=== PATIENT | male | born 1955 | race Caucasian/White ===

== ENCOUNTER → 2016-07-30 | Outpatient (CLI) | payer OTHER ==
[2016-07-30 13:46] LABS: ABSOLUTE BASOPHILS # (AUTO) 0.1 10^3/uL (0.0-0.2); ABSOLUTE EOSINOPHILS # (AUTO) 0.1 10^3/uL (0.0-0.6); ABSOLUTE LYMPHOCYTES (AUTO) 1.6 10^3/uL (0.5-4.7); ABSOLUTE MONOCYTES (AUTO) 0.8 10^3/uL (0.1-1.4); ABSOLUTE NEUT (AUTO) 4.4 10^3/uL (1.7-8.2); BASOPHILS % (AUTO) 0.8 % (0-2); EOSINOPHILS % (AUTO) 1.7 % (0-6); HEMOGLOBIN 15.7 g/dL (13.5-17.0); HGB HCT DIFFERENCE -1.9; LYMPHOCYTES % (AUTO) 22.9 % (13-45); MEAN CORPUSCULAR HEMOGLOBIN 29.8 pg (27.0-33.4); MEAN CORPUSCULAR VOLUME 93 fl (80-97); MONOCYTES % (AUTO) 11.8 % (3-13); RED BLOOD COUNT 5.28 10^6/uL (4.35-5.55); RED CELL DISTRIBUTION WIDTH 13.7 % (11.5-14.0); SEGMENTED NEUTROPHILS % (AUTO) 62.8 % (42-78)
[2016-07-30 14:12] LABS: ANION GAP 8 (5-19); BLOOD UREA NITROGEN 22 mg/dL (7-20); CARBON DIOXIDE 30 mmol/L (22-30); CHLORIDE 102 mmol/L (98-107); CREATININE RESULT 1.09 mg/dL (0.52-1.25); GLUCOSE 112 mg/dL (75-110); POTASSIUM 4.8 mmol/L (3.6-5.0); SODIUM 140.3 mmol/L (137-145)
[2016-07-30 14:22] LABS: APPEARANCE,URINE CLEAR; BILIRUBIN,URINE NEGATIVE (NEGATIVE); GLUCOSE, URINE NEGATIVE (NEGATIVE); KETONES,URINE NEGATIVE (NEGATIVE); LEUKOCYTE ESTERASE,URINE NEGATIVE (NEGATIVE); NITRITE,URINE NEGATIVE (NEGATIVE); PROTEIN,URINE NEGATIVE (NEGATIVE); URINE SPECIFIC GRAVITY 1.019; UROBILINOGEN,URINE NEGATIVE mg/dL (<2.0)
--- NOTE | 2016-07-30 18:38 | EKG REPORT ---
SEVERITY:- ABNORMAL ECG - SINUS RHYTHM BORDERLINE IVCD WITH LAD INFERIOR INFARCT, AGE INDETERMINATE : Confirmed by: Emory Nolasco MD 30-Jul-2016 18:37:49
== END ==
LOC: OD 12:54
PROVIDERS: ATTEND Orthopaedic Surgery
DX: Z01.810 Encounter for preprocedural cardiovascular examination (principal); Z01.811 Encounter for preprocedural respiratory examination; Z01.818 Encounter for other preprocedural examination; Z79.899 Other long term (current) drug therapy; M16.11 Unilateral primary osteoarthritis, right hip; E11.9 Type 2 diabetes mellitus without complications
CPT/HCPCS: 36415; 71020; 80048; 81001; 83036; 85025; 93005; 93010

== ENCOUNTER → 2016-11-26 | Outpatient (CLI) | payer OTHER ==
[2016-11-27 15:38] LABS: APPEARANCE,URINE CLEAR; BILIRUBIN,URINE NEGATIVE (NEGATIVE); GLUCOSE, URINE NEGATIVE (NEGATIVE); KETONES,URINE NEGATIVE (NEGATIVE); LEUKOCYTE ESTERASE,URINE NEGATIVE (NEGATIVE); NITRITE,URINE NEGATIVE (NEGATIVE); PROTEIN,URINE NEGATIVE (NEGATIVE); URINE SPECIFIC GRAVITY 1.008; UROBILINOGEN,URINE NEGATIVE mg/dL (<2.0)
[2016-11-27 16:01] LABS: ABSOLUTE EOSINOPHILS # (AUTO) 0.2 10^3/uL (0.0-0.6); ABSOLUTE LYMPHOCYTES (AUTO) 2.1 10^3/uL (0.5-4.7); ABSOLUTE NEUT (AUTO) 4.5 10^3/uL (1.7-8.2); BASOPHILS % (AUTO) 0.6 % (0-2); EOSINOPHILS % (AUTO) 2.8 % (0-6); HEMATOCRIT 48.2 % (37.9-51.0); HEMOGLOBIN 15.7 g/dL (13.5-17.0); HGB HCT DIFFERENCE -1.1; LYMPHOCYTES % (AUTO) 26.4 % (13-45); MEAN CORPUSCULAR HEMOGLOBIN 29.8 pg (27.0-33.4); MEAN CORPUSCULAR HGB CONC 32.5 g/dL (32.0-36.0); MEAN CORPUSCULAR VOLUME 92 fl (80-97); MONOCYTES % (AUTO) 12.4 % (3-13); RED BLOOD COUNT 5.25 10^6/uL (4.35-5.55); RED CELL DISTRIBUTION WIDTH 13.8 % (11.5-14.0); SEGMENTED NEUTROPHILS % (AUTO) 57.8 % (42-78); WHITE BLOOD COUNT 7.8 10^3/uL (4.0-10.5)
--- NOTE | 2016-11-29 17:51 | EKG REPORT ---
SEVERITY:- ABNORMAL ECG - SINUS RHYTHM NONSPECIFIC IVCD WITH LAD BORDERLINE R WAVE PROGRESSION, ANTERIOR LEADS : Confirmed by: Luz Marina Saavedra MD 29-Nov-2016 17:50:12
[2016-11-29 19:54] LABS: ANION GAP 12 (5-19); BLOOD UREA NITROGEN 26 mg/dL (7-20); CALCIUM 10.2 mg/dL (8.4-10.2); CARBON DIOXIDE 30 mmol/L (22-30); CHLORIDE 99 mmol/L (98-107); CREATININE RESULT 1.04 mg/dL (0.52-1.25); GLUCOSE 134 mg/dL (75-110); POTASSIUM 4.4 mmol/L (3.6-5.0); SODIUM 140.7 mmol/L (137-145)
== END ==
LOC: OD 21:16
PROVIDERS: ATTEND Orthopaedic Surgery
DX: Z01.818 Encounter for other preprocedural examination (principal)
CPT/HCPCS: 36415; 71020; 80048; 81001; 83036; 85025; 93005; 93010

== ENCOUNTER 2017-01-05 05:36 | Inpatient (IN) | payer OTHER ==
[2016-12-25 12:18] LABS: APPEARANCE,URINE CLEAR; BILIRUBIN,URINE NEGATIVE (NEGATIVE); GLUCOSE, URINE NEGATIVE (NEGATIVE); KETONES,URINE NEGATIVE (NEGATIVE); LEUKOCYTE ESTERASE,URINE NEGATIVE (NEGATIVE); NITRITE,URINE NEGATIVE (NEGATIVE); PROTEIN,URINE NEGATIVE (NEGATIVE); URINE SPECIFIC GRAVITY 1.006; UROBILINOGEN,URINE NEGATIVE mg/dL (<2.0)
[2016-12-25 12:23] LABS: HEMOGLOBIN 15.9 g/dL (13.5-17.0); HGB HCT DIFFERENCE 0.7; MEAN CORPUSCULAR HEMOGLOBIN 30.3 pg (27.0-33.4); MEAN CORPUSCULAR HGB CONC 33.7 g/dL (32.0-36.0); MEAN CORPUSCULAR VOLUME 90 fl (80-97); RED BLOOD COUNT 5.23 10^6/uL (4.35-5.55); RED CELL DISTRIBUTION WIDTH 13.8 % (11.5-14.0); WHITE BLOOD COUNT 7.5 10^3/uL (4.0-10.5)
[2016-12-25 12:51] LABS: ANION GAP 12 (5-19); BLOOD UREA NITROGEN 20 mg/dL (7-20); CALCIUM 10.5 mg/dL (8.4-10.2); CARBON DIOXIDE 24 mmol/L (22-30); CHLORIDE 103 mmol/L (98-107); CREATININE RESULT 0.99 mg/dL (0.52-1.25); GLUCOSE 156 mg/dL (75-110); POTASSIUM 4.2 mmol/L (3.6-5.0); SODIUM 139.4 mmol/L (137-145)
[~2017-01-05 05:36] MED LIST: BUPIVACAINE INJ/PF LIPOSOME/PF 266 MG/20 ML SDV IJ PRN; CEFAZOLIN INJ 1 GM VIAL IV PRN; IBUPROFEN 800 MG/NS 250 ML IV PRN; LACTATED RINGERS 1000 ML IV PRN; LANSOPRAZOLE 15 MG TAB.RAP.DR PO PRN; LIDOCAINE 0.5% INJ-PF (5 MG/ML) 50 ML SDV SUBCUT PRN; OXYCODONE HCL SR 10 MG TABLET PO PRN; SCOPOLAMINE HYDROBROMIDE 1.5 MG PATCH.TD72 TOP PRN; VANCOMYCIN HCL 1,000 MG in DEXTROSE 5%-WATER 250 ML IV PRN
[2017-01-05 06:30] LABS: PROTHROMBIN TIME 13.1 SEC (11.4-15.4)
[2017-01-05 06:32] LABS: PARTIAL THROMBOPLASTIN TIME 32.9 SEC (23.5-35.8)
[2017-01-05] MEDS ORDERED: THROMBIN (BOVINE) TOPICAL 20000 UNIT VIAL ONE (06:42)
[2017-01-05] MEDS ORDERED: BUPIVACAINE INJ/PF LIPOSOME/PF 266 MG/20 ML SDV ONE (06:42)
[2017-01-05] MEDS ORDERED: THROMBIN (BOVINE) 5000 UNIT EPITAXIS KIT ONE (06:42)
[2017-01-05] MEDS ORDERED: KETAMINE HCL INJ 500 MG/10 ML VIAL ONE (06:44)
[2017-01-05] MEDS ORDERED: MIDAZOLAM 2 MG/2 ML INJ ONE (06:44)
[2017-01-05] MEDS ORDERED: TRANEXAMIC ACID INJ/PF 1,000 MG/10 ML SDV IV ONE ×2 (06:45→10:00)
[2017-01-05] MEDS ORDERED: PROPOFOL INJ 200 MG/20 ML VIAL IV ONE (06:45)
[2017-01-05] MEDS ORDERED: CLINDAMYCIN 600 MG/D5W RTU 600 MG/50 ML RTUPB IV ONE (06:48)
[2017-01-05] MEDS ORDERED: MEPERIDINE HCL/PF INJ 25 MG/1 ML DISP.SYRIN IV PRN (08:12)
[2017-01-05] MEDS ORDERED: FENTANYL CITRATE INJ/PF 100 MCG/2 ML AMPUL IV PRN ×3 (08:12)
[2017-01-05] MEDS ORDERED: MORPHINE SULFATE 10 MG/ML INJ IV PRN ×3 (08:12→08:47)
[2017-01-05] MEDS ORDERED: DIPHENHYDRAMINE HCL 50 MG/ML VIAL IV PRN ×2 (08:12→08:47)
[2017-01-05] MEDS ORDERED: PROMETHAZINE HCL INJ 25 MG/1 ML VIAL IV PRN (08:12)
[2017-01-05] MEDS ORDERED: ONDANSETRON HCL INJ/PF 4 MG/2 ML SDV IV PRN ×2 (08:12→08:49)
[2017-01-05] MEDS ORDERED: EPHEDRINE SULFATE INJ 50 MG/1 ML AMPULE ONE (08:20)
[2017-01-05] MEDS ORDERED: NITROGLYCERIN 0.4 MG/TAB 25 TAB/BOTTLE SL PRN (08:46)
[2017-01-05] MEDS ORDERED: MORPHINE SULFATE 10 MG/ML INJ IM PRN (08:47)
[2017-01-05] MEDS ORDERED: ONDANSETRON 4 MG TAB.RAPDIS PO PRN (08:47)
[2017-01-05] MEDS ORDERED: RINGERS SOLUTION,LACTATED 1,000 ML IV PRN (08:47)
[2017-01-05] MEDS ORDERED: ZOLPIDEM TARTRATE 5 MG TABLET PO PRN (08:49)
[2017-01-05] MEDS ORDERED: ACETAMINOPHEN 325 MG TABLET PO PRN (08:49)
[2017-01-05] MEDS ORDERED: MAG HYDROX/AL HYDROX/SIMETH SUSP 30 ML UDCUP PO PRN (08:49)
--- NOTE | 2017-01-05 08:53 | Operative Report ---
Operative Report DATE OF SURGERY: 01/05/17 PREOPERATIVE DIAGNOSIS: Right hip arthritis OPERATION: Right hip arthroplasty SURGEON: ABRAM HERNANDEZ ANESTHESIA: Spinal TISSUE REMOVED OR ALTERED: Bone to pathology ESTIMATED BLOOD LOSS: 150 PROCEDURE: Implants used: Femur: Joel accolade 2 stem size 6 Acetabular shell: 58 mm acetabular shell Liner: 36 mm flat cross-linked polyethylene liner Head: 36 mm chrome cobalt head -5 neck The patient is placed in a left lateral decubitus position on the operating table. The right lower extremity and hindquarter is prepped and draped in a sterile fashion. A curvilinear incision was made over the greater trochanter a posterior approach the hip was taken. The femoral head is dislocated and the femoral neck transected using an oscillating saw. Attention was next turned to the acetabulum. Soft tissues cleared off the acetabulum using electrocautery. The acetabulum was then prepared using a series of hemispherical reamers until a 57 millimeters reamer is seated. Subsequently a 58 millimeters Joel titanium hemispherical shell is impacted into position and secured with one screw. A standard flat 36 millimeters cross- link liner is impacted into the shell. Attention was next turned to the femur. Access is gained to the femoral canal using a box osteotome to the piriformis fossa. The femur is then prepared using a series of broaches until a number 6 broach is seated. A trial reduction was now performed using a 36 millimeters head with -5 neck. Preoperative leg length was recreated and is excellent anterior posterior stability. A decision was made to proceed with the above construct. All trial implants were removed. The wound is irrigated with pulsed lavage. A number 6 stem is impacted into the femoral canal. A trial reduction was again performed with a 36 mm head and a -5 neck. Findings as previously. The hip was dislocated one last time and the final chrome-cobalt head is impacted onto the trunnion. The hip was reduced. Wound is copiously irrigated with pulsed lavage. Sent closed in layers using interrupted Vicryl followed by cheyenne. A sterile dressing is applied and the patient's returned to recovery room in satisfactory patient.
[2017-01-05] MEDS ORDERED: PROMETHAZINE HCL INJ 25 MG/1 ML VIAL ONE (09:17)
[2017-01-05] MEDS ORDERED: DEXTROSE 40% GEL 15 GM TUBE X 2 PO PRN (09:20)
[2017-01-05] MEDS ORDERED: DEXTROSE 50%-WATER SYRINGE 12.5 GM/25 ML DOSE IV PRN (09:20)
[2017-01-05] MEDS ORDERED: DEXTROSE 50%-WATER SYRINGE 25 GM/50 ML DOSE IV PRN (09:20)
[2017-01-05] MEDS ORDERED: DEXTROSE 40% GEL 15 GM TUBE PO PRN (09:20)
[2017-01-05] MEDS ORDERED: GLUCAGON,HUMAN RECOMB 1 MG INJ IM PRN (09:20)
[2017-01-05] MEDS ORDERED: INSULIN LISPRO 100 UNIT/ML 3 ML VIAL SUBCUT PRN (09:20)
--- NOTE | 2017-01-05 09:35 | RADIOLOGY REPORT (SQ) ---
EXAM DESCRIPTION: PELVIS AP COMPLETED DATE/TIME: 01/05/2017 9:26 am REASON FOR STUDY: Post Op Long Cassette in PACU M16.11 UNILATERAL PRIMARY OSTEOARTHRITIS, RIGHT HI P COMPARISON: None. NUMBER OF VIEWS: One view TECHNIQUE: Digital radiographic images of the pelvis post-procedure LIMITATIONS: None. FINDINGS: BONES: No worrisome or unexpected findings post-procedure. DEVICE: There is been a total right hip replacement. SOFT TISSUES: No worrisome findings. Expected postoperative soft tissue changes. IMPRESSION: Satisfactory postoperative right hip. TECHNICAL DOCUMENTATION: JOB ID: [id number] [facility]- All Rights Reserved
[2017-01-05] MEDS ORDERED: TRANEXAMIC ACID INJ/PF 1,000 MG/10 ML SDV IV PRN (10:00)
[2017-01-05] MEDS ORDERED: (PENDING PHARMACY ID) (Sitagliptin Phos/Metformin Hcl [Janumet 50-500 Mg Tablet] 1 EACH) PO SCH (10:00)
[2017-01-05] MEDS ORDERED: CEFAZOLIN 2 GM/D5W RTU 50 ML IV SCH (12:00)
[2017-01-05] MEDS: OXYCODONE HCL IR 5 MG TABLET PO PRN ×2 (13:12→21:22)
[2017-01-05] MEDS ORDERED: CEFAZOLIN 2 GM/D5W RTU 2 GM/50 ML RTUPB IV ONE (13:30)
[2017-01-05] MEDS: IBUPROFEN 800 MG in NORMAL SALINE 250 ML IV SCH ×2 (14:24→22:13)
[2017-01-05] MEDS: CEFAZOLIN 2 GM/D5W RTU 2 GM/50 ML RTUPB IV SCH ×2 (14:24→22:12)
[2017-01-05] MEDS: MORPHINE SULFATE 10 MG/ML INJ IV PRN ×2 (14:30→22:12)
[2017-01-05] MEDS: SITAGLIPTIN PHOSPHATE 50 MG TABLET PO SCH (17:23)
[2017-01-05] MEDS: OXYCODONE HCL SR 10 MG TABLET PO SCH (17:24)
[2017-01-05] MEDS: METFORMIN HCL 500 MG TABLET PO SCH (17:24)
[2017-01-05] MEDS: SENNOSIDES/DOCUSATE 8.6-50 MG 1 EACH TABLET PO SCH (17:25)
[2017-01-05] MEDS ORDERED: AMLODIPINE BESYLATE 2.5 MG TABLET PO SCH (18:00)
[2017-01-05] MEDS: METOPROLOL TARTRATE 25 MG TABLET PO SCH (21:22)
[2017-01-05] MEDS ORDERED: INSULIN GLARGINE,HUM.REC.ANLOG 300 UNIT/3 ML INSULN.PEN SUBCUT SCH (22:00)
[2017-01-05] MEDS ORDERED: RIVAROXABAN 10 MG TABLET PO SCH (22:00)
[2017-01-05] MEDS ORDERED: (PENDING PHARMACY ID) (Lisinopril [Zestril] 2.5 MG) PO SCH (22:00)
[2017-01-05] MEDS ORDERED: ATORVASTATIN CALCIUM 80 MG TABLET PO SCH (22:00)
[2017-01-06] MEDS: CEFAZOLIN 2 GM/D5W RTU 2 GM/50 ML RTUPB IV SCH ×2 (02:40→10:00)
[2017-01-06] MEDS: OXYCODONE HCL SR 10 MG TABLET PO SCH (05:11)
[2017-01-06] MEDS: IBUPROFEN 800 MG in NORMAL SALINE 250 ML IV SCH (05:12)
[2017-01-06] MEDS: MORPHINE SULFATE 10 MG/ML INJ IV PRN (05:12)
[2017-01-06] MEDS ORDERED: LANSOPRAZOLE 30 MG TAB.RAP.DR PO SCH (06:00)
[2017-01-06 07:19] LABS: HEMATOCRIT 38.6 % (37.9-51.0); HEMOGLOBIN 13.2 g/dL (13.5-17.0); MEAN CORPUSCULAR HGB CONC 34.2 g/dL (32.0-36.0); MEAN CORPUSCULAR VOLUME 91 fl (80-97); RED BLOOD COUNT 4.26 10^6/uL (4.35-5.55); RED CELL DISTRIBUTION WIDTH 13.6 % (11.5-14.0); WHITE BLOOD COUNT 7.8 10^3/uL (4.0-10.5)
[2017-01-06 07:38] LABS: ANION GAP 9 (5-19); BLOOD UREA NITROGEN 17 mg/dL (7-20); CALCIUM 9.4 mg/dL (8.4-10.2); CARBON DIOXIDE 25 mmol/L (22-30); CHLORIDE 102 mmol/L (98-107); CREATININE RESULT 1.08 mg/dL (0.52-1.25); GLUCOSE 190 mg/dL (75-110); POTASSIUM 4.3 mmol/L (3.6-5.0); SODIUM 135.5 mmol/L (137-145)
--- NOTE | 2017-01-06 07:43 | PDOC DISCHARGE SUMMARY ---
General - Admit/Disc Date/PCP Admission Date/Primary Care Provider: 01/05/17 08:47 DOROTHY CASANOVA MD Discharge Date: 01/06/17 - Discharge Diagnosis (1) Arthritis, hip Is this a current diagnosis for this admission?: YesSummary: The 61-year-old white male with progressive right hip pain and functional disability secondary osteoarthritis. Patient is admitted for right hip arthroplasty. - Additional Information Resuscitation Status: Full Code Discharge Diet: As Tolerated, Regular Discharge Activity: Activity As Tolerated, Balance Activity w/Rest, No Driving, No tub bath Home Medications: Atorvastatin Calcium [Lipitor 80 mg Tablet] 80 mg PO QHS 05/16/15 Docusate Sodium [Colace 100 mg Capsule] 50 - 100 mg PO BID 05/16/15 Insulin Glargine,Hum.rec.anlog [Lantus Solostar] 32 unit SQ QHS 05/16/15 Lisinopril [Zestril] 2.5 mg PO QHS 05/16/15 Metoprolol Tartrate 25 mg PO BID 05/16/15 Nitroglycerin [Nitrostat] 0.4 mg SL ASDIR PRN 05/16/15 Sitagliptin Phos/Metformin HCl [Janumet 50-500 mg Tablet] 1 each PO BID Clopidogrel Bisulfate [Plavix 75 mg Tablet] 75 mg PO QPM #0 05/30/15 Amlodipine Besylate 2.5 mg PO QPM 12/24/16 Aspirin [Aspirin EC] 81 mg PO DAILY 12/24/16 Furosemide [Lasix] 60 mg PO QAM 12/24/16 Hydrocodone/Acetaminophen [Vicodin Es 7.5-300 mg Tablet] 1 each PO BID PRN 12/24 Isosorbide Mononitrate [Isosorbide Mononitrate ER] 30 mg PO QAM 12/24/16 Meloxicam 7.5 mg PO BID 12/24/16 Oxycodone HCl [Oxy-Ir 5 mg Tablet] 5 mg PO Q6HP PRN #0 tablet 01/06/17 Rivaroxaban [Xarelto 10 mg Tablet] 10 mg PO QHS #0 tablet 01/06/17 History of Present Illness History of Present Illness: RAMON KIRBY SR is a 61 year old male Hospital Course Hospital Course: Admitted through the operating room where he undergoes an uncomplicated right hip arthroplasty. Is returned to the floor in satisfactory condition. Makes excellent progress with physical therapy and ambulates 400 feet on the first day. Patient denies any pain. Physical Exam Vital Signs: Temp Pulse Resp BP Pulse Ox 37.2 C 88 20 118/58 L 95 01/06/17 00:19 01/06/17 00:19 01/06/17 00:19 01/06/17 00:19 01/06/17 00:19 Intake & Output 01/05/17 01/06/17 01/07/17 06:59 06:59 06:59 Intake Total 0 7172 Output Total 4800 Balance 0 2372 General appearance: PRESENT: no acute distress Head exam: PRESENT: normocephalic Eye exam: PRESENT: EOMI Respiratory exam: PRESENT: unlabored Cardiovascular exam: PRESENT: RRR Pulses: PRESENT: +1 pedal pulses bilateral Vascular exam: PRESENT: normal capillary refill GI/Abdominal exam: PRESENT: soft Rectal exam: PRESENT: deferred Extremities exam: PRESENT: other - Right hip picot dressing is clean dry and intact. Leg lengths are equal. Distal neurovascular examination is intact. Neurological exam: PRESENT: alert, awake, oriented to person, oriented to place , oriented to time, oriented to situation. ABSENT: motor sensory deficit Psychiatric exam: PRESENT: appropriate affect, normal mood. ABSENT: homicidal ideation, suicidal ideation Skin exam: PRESENT: dry, intact, warm. ABSENT: cyanosis, rash Results Impressions: Pelvis X-Ray 01/05/17 08:48 IMPRESSION: Satisfactory postoperative right hip. Status: Imported from PACS Plan Discharge Plan: Patient to be discharged home with home health nursing, home health physical therapy, wheeled walker, extra-large bedside commode. Visiting nurse service can change the right hip picot dressing on postop day 7. Follow-up can be with Dr. Mcghee in the [facility] for surgery in approximately 2 weeks for staple removal. Time Spent: Less than 30 Minutes
[2017-01-06] MEDS ORDERED: FUROSEMIDE 40 MG TABLET PO SCH (08:00)
[2017-01-06] MEDS: METOPROLOL TARTRATE 25 MG TABLET PO SCH (09:30)
[2017-01-06] MEDS: OXYCODONE HCL IR 5 MG TABLET PO PRN (09:31)
[2017-01-06] MEDS: SITAGLIPTIN PHOSPHATE 50 MG TABLET PO SCH (09:31)
[2017-01-06] MEDS: METFORMIN HCL 500 MG TABLET PO SCH (09:32)
[2017-01-06] MEDS: SENNOSIDES/DOCUSATE 8.6-50 MG 1 EACH TABLET PO SCH (09:32)
[2017-01-06] MEDS ORDERED: PRENATAL VITAMIN W-O CA NO5/FE FUMARATE/FA CAPSULE PO SCH (10:00)
[2017-01-06] MEDS ORDERED: ISOSORBIDE MONONITRATE 30 MG TAB.ER.24H PO SCH (10:00)
[2017-01-06] MEDS ORDERED: LISINOPRIL 5 MG TABLET PO SCH (10:00)
[2017-01-06 11:24] VITALS: BP 113/63
== END 2017-01-06 11:59 | disposition home health service (06) | DRG 470 ==
LOC: UNDOADMIN 05:36 → INOR 05:36 → 4S 10:06 → INOR 10:06
PROVIDERS: ADMIT Orthopaedic Surgery; ATTEND Orthopaedic Surgery
PROC: 0SR902A Replacement of Right Hip Joint with Metal on Polyethylene Synthetic Substitute, Uncemented, Open Approach (ICD-10-PCS; principal; 2017-01-05 07:30)
DX: M16.11 Unilateral primary osteoarthritis, right hip (principal); I10 Essential (primary) hypertension; I25.10 Atherosclerotic heart disease of native coronary artery without angina pectoris; E78.00 Pure hypercholesterolemia, unspecified; M06.9 Rheumatoid arthritis, unspecified; G47.30 Sleep apnea, unspecified; K21.9 Gastro-esophageal reflux disease without esophagitis; Z79.4 Long term (current) use of insulin; Z79.899 Other long term (current) drug therapy; Z88.8 Allergy status to other drugs, medicaments and biological substances; Z91.013 Allergy to seafood; Z82.49 Family history of ischemic heart disease and other diseases of the circulatory system; Z83.3 Family history of diabetes mellitus
CPT/HCPCS: 01214; 36415; 72170; 80048; 81001; 82962; 84132; 85027; 85610; 85730; 86850; 86900; 86901; 88305; 88311; 94799; C1713; C9290; J0690; J1741; J1815; J2250; J2270; J2550; J2704; J3370; J3490; J7050; J7060

== ENCOUNTER → 2017-03-26 | Outpatient (CLI) | payer OTHER ==
[2017-03-26 13:55] LABS: ABSOLUTE BASOPHILS # (AUTO) 0.1 10^3/uL (0.0-0.2); ABSOLUTE EOSINOPHILS # (AUTO) 0.1 10^3/uL (0.0-0.6); ABSOLUTE LYMPHOCYTES (AUTO) 1.2 10^3/uL (0.5-4.7); BASOPHILS % (AUTO) 0.8 % (0-2); EOSINOPHILS % (AUTO) 1.2 % (0-6); HEMATOCRIT 44.2 % (37.9-51.0); HEMOGLOBIN 15.4 g/dL (13.5-17.0); LYMPHOCYTES % (AUTO) 16.2 % (13-45); MEAN CORPUSCULAR HEMOGLOBIN 30.9 pg (27.0-33.4); MEAN CORPUSCULAR HGB CONC 34.8 g/dL (32.0-36.0); MEAN CORPUSCULAR VOLUME 89 fl (80-97); MONOCYTES % (AUTO) 13.3 % (3-13); RED BLOOD COUNT 4.99 10^6/uL (4.35-5.55); RED CELL DISTRIBUTION WIDTH 14.3 % (11.5-14.0); SEGMENTED NEUTROPHILS % (AUTO) 68.5 % (42-78); WHITE BLOOD COUNT 7.3 10^3/uL (4.0-10.5)
[2017-03-26 14:17] LABS: ANION GAP 11 (5-19); BLOOD UREA NITROGEN 23 mg/dL (7-20); CALCIUM 10.5 mg/dL (8.4-10.2); CARBON DIOXIDE 27 mmol/L (22-30); CHLORIDE 98 mmol/L (98-107); CREATININE RESULT 0.94 mg/dL (0.52-1.25); GLUCOSE 175 mg/dL (75-110); POTASSIUM 3.7 mmol/L (3.6-5.0); SODIUM 136.4 mmol/L (137-145)
[2017-03-26 14:19] LABS: C-REACTIVE PROTEIN < 5.0 mg/L (<10.0)
[2017-03-26 14:37] LABS: ERYTHROCYTE SEDIMENTATION RATE 8 mm/hr (0-20)
== END ==
LOC: OD 12:11
PROVIDERS: ATTEND Orthopaedic Surgery
DX: T84.51XA Infection and inflammatory reaction due to internal right hip prosthesis, initial encounter (principal)
CPT/HCPCS: 36415; 80048; 85025; 85652; 86140

== ENCOUNTER → 2017-05-19 | Outpatient (CLI) | payer OTHER ==
--- NOTE | 2017-05-19 10:44 | RADIOLOGY REPORT (SQ) ---
EXAM DESCRIPTION: CHEST PA/LATERAL COMPLETED DATE/TIME: 05/19/2017 10:24 am REASON FOR STUDY: PRE OP COMPARISON: CT chest 05/21/2015 Two-view chest 07/30/2016, 11/26/2016 EXAM PARAMETERS: NUMBER OF VIEWS: two views TECHNIQUE: Digital Frontal and Lateral radiographic views of the chest acquired. RADIATION DOSE: NA LIMITATIONS: none FINDINGS: LUNGS AND PLEURA: No opacities, masses or pneumothorax. No pleural effusion. MEDIASTINUM AND HILAR STRUCTURES: No masses or contour abnormalities. HEART AND VASCULAR STRUCTURES: Moderate cardiomegaly, post sternotomy and CABG. No pulmonary vascula r congestion BONES: No acute findings. HARDWARE: None in the chest. OTHER: No other significant finding. IMPRESSION: Stable cardiomegaly. Post CABG. No acute infiltrates. TECHNICAL DOCUMENTATION: JOB ID: [id number] [employer]- All Rights Reserved
[2017-05-19 10:45] LABS: APPEARANCE,URINE CLEAR; BILIRUBIN,URINE NEGATIVE (NEGATIVE); GLUCOSE, URINE 50 mg/dL (NEGATIVE); KETONES,URINE NEGATIVE (NEGATIVE); LEUKOCYTE ESTERASE,URINE TRACE (NEGATIVE); NITRITE,URINE NEGATIVE (NEGATIVE); PROTEIN,URINE NEGATIVE (NEGATIVE); URINE SPECIFIC GRAVITY 1.005; UROBILINOGEN,URINE NEGATIVE mg/dL (<2.0)
[2017-05-19 10:59] LABS: ABSOLUTE BASOPHILS # (AUTO) 0.1 10^3/uL (0.0-0.2); ABSOLUTE EOSINOPHILS # (AUTO) 0.1 10^3/uL (0.0-0.6); ABSOLUTE LYMPHOCYTES (AUTO) 1.7 10^3/uL (0.5-4.7); ABSOLUTE MONOCYTES (AUTO) 0.6 10^3/uL (0.1-1.4); ABSOLUTE NEUT (AUTO) 3.4 10^3/uL (1.7-8.2); BASOPHILS % (AUTO) 1.1 % (0-2); EOSINOPHILS % (AUTO) 2.5 % (0-6); HEMATOCRIT 35.4 % (37.9-51.0); HEMOGLOBIN 12.1 g/dL (13.5-17.0); HGB HCT DIFFERENCE 0.9; MEAN CORPUSCULAR HEMOGLOBIN 31.6 pg (27.0-33.4); MEAN CORPUSCULAR HGB CONC 34.3 g/dL (32.0-36.0); MEAN CORPUSCULAR VOLUME 92 fl (80-97); MONOCYTES % (AUTO) 10.4 % (3-13); RED BLOOD COUNT 3.83 10^6/uL (4.35-5.55); RED CELL DISTRIBUTION WIDTH 15.4 % (11.5-14.0); WHITE BLOOD COUNT 5.9 10^3/uL (4.0-10.5)
[2017-05-19 11:23] LABS: ANION GAP 13 (5-19); BLOOD UREA NITROGEN 18 mg/dL (7-20); CALCIUM 10.5 mg/dL (8.4-10.2); CARBON DIOXIDE 28 mmol/L (22-30); CHLORIDE 105 mmol/L (98-107); CREATININE RESULT 1.06 mg/dL (0.52-1.25); GLUCOSE 211 mg/dL (75-110); SODIUM 145.7 mmol/L (137-145)
--- NOTE | 2017-05-19 13:16 | EKG REPORT ---
SEVERITY:- ABNORMAL ECG - SINUS RHYTHM BORDERLINE IVCD WITH LAD INFERIOR INFARCT, AGE INDETERMINATE : Confirmed by: Emory Nolasco MD 19-May-2017 13:15:57
== END ==
LOC: OD 09:43
PROVIDERS: ATTEND Orthopaedic Surgery
DX: Z01.810 Encounter for preprocedural cardiovascular examination (principal); Z01.812 Encounter for preprocedural laboratory examination; Z01.818 Encounter for other preprocedural examination; I51.7 Cardiomegaly; Z95.1 Presence of aortocoronary bypass graft
CPT/HCPCS: 36415; 71020; 80048; 81001; 83036; 85025; 93005; 93010

== ENCOUNTER 2017-05-25 06:36 | Inpatient (IN) | payer OTHER ==
[~2017-05-25 06:36] MED LIST changes: -BUPIVACAINE INJ/PF LIPOSOME/PF 266 MG/20 ML SDV IJ PRN; +BUPIVACAINE INJ/PF LIPOSOME/PF 266 MG/20 ML SDV INJ PRN; +IBUPROFEN 800 MG in NORMAL SALINE 250 ML IV PRN; -IBUPROFEN 800 MG/NS 250 ML IV PRN; +RINGERS SOLUTION,LACTATED 500 ML IV PRN; -SCOPOLAMINE HYDROBROMIDE 1.5 MG PATCH.TD72 TOP PRN
[2017-05-25] MEDS ORDERED: BUPIVACAINE INJ/PF LIPOSOME/PF 266 MG/20 ML SDV ONE (07:18)
[2017-05-25] MEDS ORDERED: THROMBIN (BOVINE) TOPICAL 20000 UNIT VIAL ONE (07:18)
[2017-05-25] MEDS ORDERED: THROMBIN (BOVINE) 5000 UNIT EPITAXIS KIT ONE (07:18)
[2017-05-25] MEDS ORDERED: FENTANYL CITRATE INJ/PF 100 MCG/2 ML AMPUL ONE (07:33)
[2017-05-25] MEDS ORDERED: LIDOCAINE 2% INJ-PF (20 MG/ML) 10 ML AMPUL ONE (07:33)
[2017-05-25] MEDS ORDERED: MIDAZOLAM 2 MG/2 ML INJ ONE (07:34)
[2017-05-25] MEDS ORDERED: TRANEXAMIC ACID INJ/PF 1,000 MG/10 ML SDV IV ONE ×2 (07:34→12:00)
[2017-05-25] MEDS ORDERED: ONDANSETRON HCL INJ/PF 4 MG/2 ML SDV ONE (07:34)
[2017-05-25] MEDS ORDERED: ACETAMINOPHEN 100 ML IV ONE ×2 (07:34→16:29)
[2017-05-25] MEDS ORDERED: PROPOFOL INJ 200 MG/20 ML VIAL IV ONE (07:34)
[2017-05-25 07:43] LABS: PROTHROMBIN TIME 13.4 SEC (11.4-15.4)
[2017-05-25 07:44] LABS: PARTIAL THROMBOPLASTIN TIME 33.4 SEC (23.5-35.8)
[2017-05-25 08:05] LABS: ANION GAP 10 (5-19); BLOOD UREA NITROGEN 24 mg/dL (7-20); CALCIUM 10.3 mg/dL (8.4-10.2); CARBON DIOXIDE 25 mmol/L (22-30); CHLORIDE 106 mmol/L (98-107); CREATININE RESULT 1.15 mg/dL (0.52-1.25); GLUCOSE 160 mg/dL (75-110); POTASSIUM 4.2 mmol/L (3.6-5.0); SODIUM 141.2 mmol/L (137-145)
[2017-05-25] MEDS ORDERED: KETAMINE HCL INJ 500 MG/10 ML VIAL ONE (09:09)
[2017-05-25] MEDS ORDERED: FENTANYL CITRATE INJ/PF 100 MCG/2 ML AMPUL IV PRN ×3 (09:19)
[2017-05-25] MEDS ORDERED: MEPERIDINE HCL/PF INJ 25 MG/1 ML DISP.SYRIN IV PRN (09:19)
[2017-05-25] MEDS ORDERED: PROMETHAZINE HCL INJ 25 MG/1 ML VIAL IV PRN ×2 (09:19)
[2017-05-25] MEDS ORDERED: ONDANSETRON HCL INJ/PF 4 MG/2 ML SDV IV PRN ×2 (09:19→10:29)
[2017-05-25] MEDS ORDERED: MORPHINE SULFATE 10 MG/ML INJ IV PRN ×3 (09:19→10:29)
[2017-05-25] MEDS ORDERED: OXYCODONE-ACETAMINOPHEN 5-325 MG TABLET PO PRN ×2 (09:19)
[2017-05-25] MEDS ORDERED: DIPHENHYDRAMINE HCL 50 MG/ML VIAL IV PRN ×2 (09:19→10:29)
--- NOTE | 2017-05-25 10:12 | Operative Report ---
Operative Report DATE OF SURGERY: 05/25/17 PREOPERATIVE DIAGNOSIS: Right hip pain after total hip arthroplasty OPERATION: Right acetabular revision SURGEON: ABRAM HERNANDEZ [employer] MECHANIC: YOSELIN HARRISON ANESTHESIA: Spinal TISSUE REMOVED OR ALTERED: Cultures 2 to microbiology ESTIMATED BLOOD LOSS: 150 PROCEDURE: Patient is a 61-year-old white male status post right hip arthroplasty in December with persistent right hip pain. Clinical examination and selective injections identify psoas tendinitis as a cause of the patient's pain. Injections, physical therapy, and anti-inflammatory medication did not alleviate the patient 's pain is now returned for revision of the acetabular component. Surgical plan is to change the version of the cup as well as to medialize it. The patient is placed in a left lateral decubitus position on the operating table the right lower extremity hunker prepped and draped in sterile fashion. Using a previous surgical approach or posterior approach the hip was taken. Upon entering the hip capsule 2 cultures are sent. Subsequently hip was dislocated and the femoral head disimpacted. The femur was retracted anteriorly underlying cup was exposed. The liner was removed uneventfully. The screw was removed. Using a series of acetabular knives the existing cup was removed with little to no bone loss. The acetabular center. Using a series hemispherical reamers starting with 53 and increasing to a 61 mm. The cup was medialized down to the medial cortical table. Subsequently [place] 62 mm multihole revision cup was impacted into position. It secure without screws. A single screw was placed proximally. A 36 mm flat cross-link polyethylene liner was impacted into the cup. A [place] 36 mm -5 neck chrome cobalt head is impacted onto the trunnion of the Accolade 2 stem. The hip was reduced. His cathy care with pulse lavage. A subsequent closed in layers with interrupted Vicryl followed by cheyenne. A sterile compressive dressing was applied and the patient's return to the recovery room in satisfactory condition.
[2017-05-25] MEDS ORDERED: NITROGLYCERIN 0.4 MG/TAB 25 TAB/BOTTLE SL PRN (10:27)
[2017-05-25] MEDS ORDERED: FUROSEMIDE 40 MG TABLET PO PRN (10:27)
[2017-05-25] MEDS ORDERED: ONDANSETRON 4 MG TAB.RAPDIS PO PRN (10:29)
[2017-05-25] MEDS ORDERED: ZOLPIDEM TARTRATE 5 MG TABLET PO PRN (10:29)
[2017-05-25] MEDS ORDERED: RINGERS SOLUTION,LACTATED 1,000 ML IV PRN (10:29)
[2017-05-25] MEDS ORDERED: MAG HYDROX/AL HYDROX/SIMETH SUSP 30 ML UDCUP PO PRN (10:29)
[2017-05-25] MEDS ORDERED: MORPHINE SULFATE 10 MG/ML INJ IM PRN (10:29)
[2017-05-25] MEDS ORDERED: DEXTROSE 50%-WATER SYRINGE 12.5 GM/25 ML DOSE IV PRN (11:16)
[2017-05-25] MEDS ORDERED: GLUCAGON,HUMAN RECOMB 1 MG INJ IM PRN (11:16)
[2017-05-25] MEDS ORDERED: DEXTROSE 40% GEL 15 GM TUBE X 2 PO PRN (11:16)
[2017-05-25] MEDS ORDERED: DEXTROSE 50%-WATER SYRINGE 25 GM/50 ML DOSE IV PRN (11:16)
[2017-05-25] MEDS ORDERED: DEXTROSE 40% GEL 15 GM TUBE PO PRN (11:16)
--- NOTE | 2017-05-25 11:52 | RADIOLOGY REPORT (SQ) ---
EXAM DESCRIPTION: HIP RIGHT AP/LATERAL COMPLETED DATE/TIME: 05/25/2017 11:34 am REASON FOR STUDY: Post Op Long Cassette in PACU M76.11 PSOAS TENDINITIS, RIGHT HIP Z96.641 PRESE NCE OF RIGHT ARTIFICIAL HIP JOINT COMPARISON: None. NUMBER OF VIEWS: Two view(s). TECHNIQUE: Digital radiographic images of the right hip post-procedure. LIMITATIONS: None. FINDINGS: BONES: No worrisome or unexpected findings post-procedure. DEVICE: Total hip replacement. Components of the device in appropriate location. SOFT TISSUES: No worrisome findings. Expected postoperative soft tissue changes. IMPRESSION: SATISFACTORY POSTOPERATIVE RIGHT HIP. TECHNICAL DOCUMENTATION: JOB ID: [id number] [employer]- All Rights Reserved
[2017-05-25] MEDS: OXYCODONE HCL IR 5 MG TABLET PO PRN (12:31)
[2017-05-25] MEDS: MORPHINE SULFATE 10 MG/ML INJ IV PRN (15:56)
[2017-05-25] MEDS: INSULIN LISPRO 100 UNIT/ML 3 ML VIAL SUBCUT PRN (17:01)
[2017-05-25] MEDS: PREGABALIN 75 MG CAPSULE PO SCH (17:08)
[2017-05-25] MEDS: SENNOSIDES/DOCUSATE 8.6-50 MG 1 EACH TABLET PO SCH (17:08)
[2017-05-25] MEDS: METFORMIN HCL 500 MG TABLET PO SCH (17:08)
[2017-05-25] MEDS: AMLODIPINE BESYLATE 2.5 MG TABLET PO SCH (17:09)
[2017-05-25] MEDS: SITAGLIPTIN PHOSPHATE 50 MG TABLET PO SCH (17:09)
[2017-05-25] MEDS: IBUPROFEN 800 MG in NORMAL SALINE 250 ML IV SCH (17:49)
[2017-05-25] MEDS ORDERED: (PENDING PHARMACY ID) (Sitagliptin Phos/Metformin Hcl [Janumet 50-500 Mg Tablet] 1 EACH) PO SCH (18:00)
[2017-05-25] MEDS ORDERED: METOPROLOL TARTRATE 25 MG TABLET PO SCH (18:00)
[2017-05-25] MEDS: ATORVASTATIN CALCIUM 80 MG TABLET PO SCH (21:38)
[2017-05-25] MEDS: RIVAROXABAN 10 MG TABLET PO SCH (21:39)
[2017-05-25] MEDS: OXYCODONE HCL SR 10 MG TABLET PO SCH (21:39)
[2017-05-25] MEDS: METOPROLOL TARTRATE 25 MG TABLET PO SCH (21:40)
[2017-05-25] MEDS: LISINOPRIL 5 MG TABLET PO SCH (21:40)
[2017-05-25] MEDS ORDERED: (PENDING PHARMACY ID) (Lisinopril [Zestril] 2.5 MG) PO SCH (22:00)
[2017-05-25] MEDS ORDERED: VANCOMYCIN HCL 1,000 MG in DEXTROSE 5%-WATER 250 ML IV ONE (22:29)
[2017-05-26] MEDS: MORPHINE SULFATE 10 MG/ML INJ IV PRN ×4 (00:01→22:41)
[2017-05-26] MEDS: IBUPROFEN 800 MG in NORMAL SALINE 250 ML IV SCH ×3 (01:45→17:08)
[2017-05-26] MEDS: LANSOPRAZOLE 30 MG TAB.RAP.DR PO SCH (05:03)
--- NOTE | 2017-05-26 07:12 | PDOC DISCHARGE SUMMARY ---
General - Admit/Disc Date/PCP Admission Date/Primary Care Provider: 05/25/17 06:36 DOROTHY CASANOVA MD Discharge Date: 05/26/17 - Discharge Diagnosis (1) Mechanical complication associated with orthopedic device Is this a current diagnosis for this admission?: Yes - Additional Information Resuscitation Status: Full Code Discharge Diet: As Tolerated, Regular Discharge Activity: Balance Activity w/Rest, No Driving, No tub bath Home Medications: Amlodipine Besylate [Norvasc 2.5 mg Tablet] 2.5 mg PO DAILY 05/25/17 Atorvastatin Calcium [Lipitor 80 mg Tablet] 80 mg PO QHS 05/25/17 Clopidogrel Bisulfate [Plavix 75 mg Tablet] 75 mg PO DAILY 05/25/17 Furosemide [Lasix 40 mg Tablet] 80 mg PO DAILY 05/25/17 Insulin Glargine,Hum.rec.anlog [Lantus Solostar] 32 unit SQ QHS 05/25/17 Isosorbide Mononitrate [Isosorbide Mononitrate ER] 30 mg PO DAILY 05/25/17 Lisinopril [Prinivil 5 mg Tablet] 2.5 mg PO DAILY 05/25/17 Meloxicam [Mobic] 7.5 mg PO BID 05/25/17 Metolazone [Zaroxolyn 5 mg Tablet] 5 mg PO Q8 05/25/17 Metoprolol Tartrate [Lopressor 50 mg Tablet] 25 mg PO Q12 05/25/17 Sitagliptin Phos/Metformin HCl [Janumet 50-1,000 mg Tablet] 1 tab PO BID Zolpidem Tartrate [Ambien 5 mg Tablet] 5 mg PO QHS 05/25/17 Oxycodone HCl [Oxy-Ir 5 mg Tablet] 5 mg PO Q6HP PRN tablet 05/26/17 Rivaroxaban [Xarelto 10 mg Tablet] 10 mg PO QHS tablet 05/26/17 History of Present Illness History of Present Illness: RAMON KIRBY is a 61 year old male has post right hip arthroplasty in December with the development of a right psoas tendinitis it was unresponsive to nonoperative measures. Patient is admitted for an elective right hip revision arthroplasty. Hospital Course Hospital Course: The patient is admitted through the operating where he undergoes uncomplicated right acetabular revision. Is returned to the floor in satisfactory condition. He ambulates 300 feet on the first postoperative day. He has some incisional pain but none of the previous inguinal pain that he experienced preop. Physical Exam Vital Signs: Temp Pulse Resp BP Pulse Ox 36.7 C 91 17 135/68 H 99 05/26/17 00:03 05/26/17 00:03 05/26/17 00:03 05/26/17 00:03 05/26/17 00:03 Intake & Output 05/25/17 05/26/17 05/27/17 06:59 06:59 06:59 Intake Total 3590 Output Total 2840 Balance 750 Weight 131.54 kg General appearance: PRESENT: no acute distress, obese Head exam: PRESENT: normocephalic Respiratory exam: PRESENT: unlabored Cardiovascular exam: PRESENT: RRR Pulses: PRESENT: +1 pedal pulses bilateral GI/Abdominal exam: PRESENT: soft Rectal exam: PRESENT: deferred Extremities exam: PRESENT: other - Right hip dressing clean dry and intact. Leg lengths equal. Distal neurovascular examination is intact. Neurological exam: PRESENT: alert, awake, oriented to person, oriented to place , oriented to time, oriented to situation. ABSENT: motor sensory deficit Psychiatric exam: PRESENT: appropriate affect, normal mood. ABSENT: homicidal ideation, suicidal ideation Skin exam: PRESENT: dry, intact, warm. ABSENT: cyanosis, rash Results Laboratory Results: 05/25/17 05/25/17 07:18 07:18 Sodium 141.2 Potassium 4.2 Chloride 106 Carbon Dioxide 25 Anion Gap 10 BUN 24 H Creatinine 1.15 Est GFR ( Amer) > 60 Est GFR (Non-Af Amer) > 60 Glucose 160 H Calcium 10.3 H Blood Type O NEGATIVE Antibody Screen NEGATIVE Impressions: Hip/Pelvis X-Ray 05/25/17 10:31 IMPRESSION: SATISFACTORY POSTOPERATIVE RIGHT HIP. Status: Imported from PACS Plan Time Spent: Less than 30 Minutes - Patient to be discharged home with home health nursing, home health physical therapy. Patient should already have a rolling walker as well as a bedside commode. Replete with Dr. Mcghee and [facility] for surgery in 2 weeks for staple removal.
[2017-05-26 07:14] LABS: HEMATOCRIT 32.9 % (37.9-51.0); HEMOGLOBIN 11.2 g/dL (13.5-17.0); HGB HCT DIFFERENCE 0.7; MEAN CORPUSCULAR HEMOGLOBIN 31.4 pg (27.0-33.4); MEAN CORPUSCULAR HGB CONC 33.9 g/dL (32.0-36.0); MEAN CORPUSCULAR VOLUME 93 fl (80-97); RED BLOOD COUNT 3.55 10^6/uL (4.35-5.55); RED CELL DISTRIBUTION WIDTH 15.8 % (11.5-14.0); WHITE BLOOD COUNT 8.6 10^3/uL (4.0-10.5)
[2017-05-26 07:21] LABS: ANION GAP 8 (5-19); BLOOD UREA NITROGEN 19 mg/dL (7-20); CARBON DIOXIDE 30 mmol/L (22-30); CHLORIDE 101 mmol/L (98-107); CREATININE RESULT 1.02 mg/dL (0.52-1.25); GLUCOSE 188 mg/dL (75-110); POTASSIUM 4.5 mmol/L (3.6-5.0); SODIUM 138.5 mmol/L (137-145)
[2017-05-26] MEDS: ISOSORBIDE MONONITRATE 30 MG TAB.ER.24H PO SCH (07:23)
[2017-05-26] MEDS: OMEGA-3 ACID ETHYL ESTERS 1 GM CAPSULE PO SCH (09:07)
[2017-05-26] MEDS: INSULIN LISPRO 100 UNIT/ML 3 ML VIAL SUBCUT PRN ×3 (09:07→17:09)
[2017-05-26] MEDS: METFORMIN HCL 500 MG TABLET PO SCH ×2 (09:08→17:06)
[2017-05-26] MEDS: SENNOSIDES/DOCUSATE 8.6-50 MG 1 EACH TABLET PO SCH ×2 (09:08→17:06)
[2017-05-26] MEDS: SITAGLIPTIN PHOSPHATE 50 MG TABLET PO SCH ×2 (09:08→17:06)
[2017-05-26] MEDS: METOPROLOL TARTRATE 25 MG TABLET PO SCH ×2 (09:08→21:35)
[2017-05-26] MEDS: MULTIVITAMIN TABLET PO SCH (09:08)
[2017-05-26] MEDS: OXYCODONE HCL SR 10 MG TABLET PO SCH ×2 (09:09→21:36)
[2017-05-26] MEDS: PREGABALIN 75 MG CAPSULE PO SCH ×2 (09:09→17:07)
[2017-05-26] MEDS ORDERED: (PENDING PHARMACY ID) (Omega-3 Fatty Acids/Fish Oil [Fish Oil 1,000 Mg Capsule] 1 CAP) PO SCH (10:00)
[2017-05-26] MEDS ORDERED: (PENDING PHARMACY ID) (Multivitamin [Multivitamins] 1 CAP) PO SCH (10:00)
[2017-05-26] MEDS ORDERED: (PENDING PHARMACY ID) (Vitamin B Complex [Vitamin B Complex] 1 CAP) PO SCH (10:00)
[2017-05-26] MEDS: AMLODIPINE BESYLATE 2.5 MG TABLET PO SCH (17:04)
[2017-05-26] MEDS: OXYCODONE HCL IR 5 MG TABLET PO PRN (17:05)
[2017-05-26] MEDS ORDERED: OXYCODONE HCL IR 5 MG TABLET PO PRN (17:15)
[2017-05-26] MEDS: RIVAROXABAN 10 MG TABLET PO SCH (21:37)
[2017-05-26] MEDS: ATORVASTATIN CALCIUM 80 MG TABLET PO SCH (21:37)
[2017-05-26] MEDS: LISINOPRIL 5 MG TABLET PO SCH (21:43)
[2017-05-27] MEDS: IBUPROFEN 800 MG in NORMAL SALINE 250 ML IV SCH ×2 (01:09→11:47)
[2017-05-27 05:24] LABS: HEMATOCRIT 31.8 % (37.9-51.0); HEMOGLOBIN 10.9 g/dL (13.5-17.0); HGB HCT DIFFERENCE 0.9; MEAN CORPUSCULAR HEMOGLOBIN 32.2 pg (27.0-33.4); MEAN CORPUSCULAR HGB CONC 34.3 g/dL (32.0-36.0); MEAN CORPUSCULAR VOLUME 94 fl (80-97); RED BLOOD COUNT 3.39 10^6/uL (4.35-5.55); RED CELL DISTRIBUTION WIDTH 15.7 % (11.5-14.0); WHITE BLOOD COUNT 9.2 10^3/uL (4.0-10.5)
[2017-05-27] MEDS: LANSOPRAZOLE 30 MG TAB.RAP.DR PO SCH (06:13)
--- NOTE | 2017-05-27 07:20 | PDOC PROGRESS REPORT ---
Subjective Progress Note for:: 05/27/17 Subjective:: 61-year-old white male status post acetabular revision who had an excellent operative day but then with excruciating onset right hip pain yesterday which canceled his discharge. Physical Exam Vital Signs: Temp Pulse Resp BP Pulse Ox 37.2 C 87 16 125/63 99 05/26/17 23:12 05/26/17 23:12 05/26/17 23:12 05/26/17 23:12 05/27/17 02:21 Intake & Output 05/26/17 05/27/17 05/28/17 06:59 06:59 06:59 Intake Total 6540 3486 Output Total 5790 1500 Balance 750 1986 Weight 131.54 kg General appearance: PRESENT: no acute distress Head exam: PRESENT: normocephalic Respiratory exam: PRESENT: unlabored Cardiovascular exam: PRESENT: RRR Pulses: PRESENT: +1 pedal pulses bilateral Vascular exam: PRESENT: normal capillary refill GI/Abdominal exam: PRESENT: soft Rectal exam: PRESENT: deferred Extremities exam: PRESENT: other - Right hip dressing clean dry and intact. Leg lengths are equal. Distal neurovascular examination is intact. Neurological exam: PRESENT: alert, awake, oriented to person, oriented to place , oriented to time, oriented to situation. ABSENT: motor sensory deficit Psychiatric exam: PRESENT: appropriate affect, normal mood. ABSENT: homicidal ideation, suicidal ideation Skin exam: PRESENT: dry, intact, warm. ABSENT: cyanosis, rash Results Laboratory Results: 05/27/17 05:04 05/26/17 06:35 05/26/17 05/27/17 06:35 05:04 WBC 9.2 RBC 3.39 L Hgb 10.9 L Hct 31.8 L MCV 94 MCH 32.2 MCHC 34.3 RDW 15.7 H Plt Count 121 L Sodium 138.5 Potassium 4.5 Chloride 101 Carbon Dioxide 30 Anion Gap 8 BUN 19 Creatinine 1.02 Est GFR ( Amer) > 60 Est GFR (Non-Af Amer) > 60 Glucose 188 H Calcium 9.0 Impressions: Hip/Pelvis X-Ray 05/25/17 10:31 IMPRESSION: SATISFACTORY POSTOPERATIVE RIGHT HIP. Status: Imported from PACS Assessment & Plan - Diagnosis (1) Mechanical complication associated with orthopedic device Is this a current diagnosis for this admission?: Yes Plan: 61-year-old white male status post right acetabular revision. The reason for his setback yesterday is not quite clear but it seems to have resolved. Will observe his physical therapy today and plan accordingly. - Time Time Spent with patient: 15-24 minutes Anticipated discharge: Home with Homehealth Within: Other
[2017-05-27] MEDS: ISOSORBIDE MONONITRATE 30 MG TAB.ER.24H PO SCH (08:35)
[2017-05-27] MEDS: ACETAMINOPHEN 325 MG TABLET PO PRN ×2 (08:49→17:54)
[2017-05-27] MEDS: METOPROLOL TARTRATE 25 MG TABLET PO SCH ×2 (11:33→21:19)
[2017-05-27] MEDS: PREGABALIN 75 MG CAPSULE PO SCH ×2 (11:33→17:55)
[2017-05-27] MEDS: MULTIVITAMIN TABLET PO SCH (11:34)
[2017-05-27] MEDS: SENNOSIDES/DOCUSATE 8.6-50 MG 1 EACH TABLET PO SCH ×2 (11:34→17:55)
[2017-05-27] MEDS: SITAGLIPTIN PHOSPHATE 50 MG TABLET PO SCH ×2 (11:35→17:55)
[2017-05-27] MEDS: METFORMIN HCL 500 MG TABLET PO SCH ×2 (11:35→17:55)
[2017-05-27] MEDS: OMEGA-3 ACID ETHYL ESTERS 1 GM CAPSULE PO SCH (11:35)
[2017-05-27] MEDS: INSULIN LISPRO 100 UNIT/ML 3 ML VIAL SUBCUT PRN ×2 (11:47→16:49)
[2017-05-27] MEDS: OXYCODONE HCL IR 5 MG TABLET PO PRN ×2 (11:48→22:20)
[2017-05-27] MEDS: FUROSEMIDE 80 MG TABLET PO SCH (11:54)
[2017-05-27] MEDS: AMLODIPINE BESYLATE 2.5 MG TABLET PO SCH (17:58)
[2017-05-27] MEDS: LISINOPRIL 5 MG TABLET PO SCH (21:19)
[2017-05-27] MEDS: ATORVASTATIN CALCIUM 80 MG TABLET PO SCH (21:19)
[2017-05-27] MEDS: RIVAROXABAN 10 MG TABLET PO SCH (21:20)
[2017-05-28 05:38] LABS: HEMATOCRIT 29.7 % (37.9-51.0); HEMOGLOBIN 10.2 g/dL (13.5-17.0); HGB HCT DIFFERENCE 0.9; MEAN CORPUSCULAR HEMOGLOBIN 32.1 pg (27.0-33.4); MEAN CORPUSCULAR HGB CONC 34.4 g/dL (32.0-36.0); MEAN CORPUSCULAR VOLUME 93 fl (80-97); RED BLOOD COUNT 3.19 10^6/uL (4.35-5.55); RED CELL DISTRIBUTION WIDTH 15.6 % (11.5-14.0); WHITE BLOOD COUNT 8.8 10^3/uL (4.0-10.5)
[2017-05-28] MEDS: LANSOPRAZOLE 30 MG TAB.RAP.DR PO SCH (05:43)
[2017-05-28] MEDS: OXYCODONE HCL IR 5 MG TABLET PO PRN (05:48)
--- NOTE | 2017-05-28 06:45 | PDOC PROGRESS REPORT ---
Subjective Progress Note for:: 05/28/17 Subjective:: 61-year-old white male 4 days status post right hip arthroplasty revision. Patient very comfortable this morning and pleased with his progress with independent ambulation. He has no complaints of pain and is eager to be discharged today. Physical Exam Vital Signs: Temp Pulse Resp BP Pulse Ox 37.3 C 91 16 133/66 H 96 05/27/17 23:32 05/27/17 23:32 05/27/17 23:32 05/27/17 23:32 05/27/17 23:32 Intake & Output 05/26/17 05/27/17 05/28/17 06:59 06:59 06:59 Intake Total 6540 3486 3140 Output Total 5790 1500 2150 Balance 750 1986 990 Weight 131.54 kg General appearance: PRESENT: no acute distress, well-developed, well-nourished Head exam: PRESENT: atraumatic, normocephalic Pulses: PRESENT: normal dorsalis pedis pul, +2 pedal pulses bilateral Vascular exam: PRESENT: normal capillary refill Additional comments: Patient's right lower extremity is in full extension with patient lying recumbent in hospital bed. He has minimal pedal lower extremity edema and is nontender to palpation. His sensorimotor functions near intact and distal neurovascular exam is intact. He still has pain with flexion of the hip although notes this pain is different than his preoperative pain. Musculoskeletal exam: PRESENT: ambulatory Additional comments: Patient makes great progress with physical therapy ambulating up to 90 feet independently. He will continue to work with home physical therapy to work towards further independent ambulation and increase strength and range of motion of right lower extremity. Neurological exam: PRESENT: alert, awake, oriented to person, oriented to place , oriented to time, oriented to situation, CN II-XII grossly intact. ABSENT: motor sensory deficit Psychiatric exam: PRESENT: appropriate affect, normal mood. ABSENT: homicidal ideation, suicidal ideation Skin exam: PRESENT: dry, intact, warm. ABSENT: cyanosis, rash Results Laboratory Results: 05/28/17 04:46 05/26/17 06:35 05/28/17 04:46 WBC 8.8 RBC 3.19 L Hgb 10.2 L Hct 29.7 L MCV 93 MCH 32.1 MCHC 34.4 RDW 15.6 H Plt Count 134 L Impressions: Hip/Pelvis X-Ray 05/25/17 10:31 IMPRESSION: SATISFACTORY POSTOPERATIVE RIGHT HIP. Assessment & Plan - Diagnosis (1) Mechanical complication associated with orthopedic device Qualifiers: Encounter type: subsequent encounter Qualified Code(s): T84.498D - Other mechanical complication of other internal orthopedic devices, implants and grafts, subsequent encounter Is this a current diagnosis for this admission?: Yes - Plan Summary Plan Summary: 61-year-old white male 3 days status post right hip arthroplasty revision. Patient did remarkably well on same day of surgery and we had originally planned for discharge on postop day 1. However had much increased pain and tenderness to palpation of the right hip on postop day 1. Therefore patient remained in hospital for observation and to work towards better pain control and to work with physical therapy to progress towards further independent ambulation and increase strength and range of motion of right lower extremity. With his extended stay he has maintained much better pain control and can now ambulate 90 feet independently. He no longer is experiencing his previous pain level and his preoperative pain has dissipated. He will be discharged home today with home health nursing, home physical therapy, wheeled walker and bedside commode. He will follow-up with Dr. Mcghee and [place] 2 weeks postoperatively at [facility] surgery for staple removal and reevaluation.
[2017-05-28] MEDS: ACETAMINOPHEN 325 MG TABLET PO PRN (08:32)
[2017-05-28] MEDS: ISOSORBIDE MONONITRATE 30 MG TAB.ER.24H PO SCH (08:33)
[2017-05-28] MEDS: INSULIN LISPRO 100 UNIT/ML 3 ML VIAL SUBCUT PRN (08:36)
[2017-05-28] MEDS: SITAGLIPTIN PHOSPHATE 50 MG TABLET PO SCH (10:27)
[2017-05-28] MEDS: METOPROLOL TARTRATE 25 MG TABLET PO SCH (10:28)
[2017-05-28] MEDS: PREGABALIN 75 MG CAPSULE PO SCH (10:29)
[2017-05-28] MEDS: OMEGA-3 ACID ETHYL ESTERS 1 GM CAPSULE PO SCH (10:29)
[2017-05-28] MEDS: MULTIVITAMIN TABLET PO SCH (10:29)
[2017-05-28] MEDS: METFORMIN HCL 500 MG TABLET PO SCH (10:29)
[2017-05-28] MEDS: FUROSEMIDE 80 MG TABLET PO SCH (10:30)
[2017-05-28] MEDS: SENNOSIDES/DOCUSATE 8.6-50 MG 1 EACH TABLET PO SCH (10:30)
[2017-05-28 10:59] VITALS: BP 127/70
== END 2017-05-28 10:59 | disposition home health service (06) | DRG 468 ==
LOC: INOR 06:36 → 4S 11:55
PROVIDERS: ADMIT Orthopaedic Surgery; ATTEND Orthopaedic Surgery
PROC: 0SPA0JZ Removal of Synthetic Substitute from Right Hip Joint, Acetabular Surface, Open Approach (ICD-10-PCS; 2017-05-25)
PROC: 0SRA0JZ Replacement of Right Hip Joint, Acetabular Surface with Synthetic Substitute, Open Approach (ICD-10-PCS; principal; 2017-05-25 08:45)
DX: T84.090A Other mechanical complication of internal right hip prosthesis, initial encounter (principal); M76.11 Psoas tendinitis, right hip; Z96.641 Presence of right artificial hip joint; E11.9 Type 2 diabetes mellitus without complications; E78.5 Hyperlipidemia, unspecified; I10 Essential (primary) hypertension; K21.9 Gastro-esophageal reflux disease without esophagitis; M19.90 Unspecified osteoarthritis, unspecified site; E66.3 Overweight; Z68.37 Body mass index [BMI] 37.0-37.9, adult; Z79.899 Other long term (current) drug therapy; Z79.4 Long term (current) use of insulin; Z88.8 Allergy status to other drugs, medicaments and biological substances; Z87.891 Personal history of nicotine dependence; Z96.651 Presence of right artificial knee joint; Z95.1 Presence of aortocoronary bypass graft
CPT/HCPCS: 01215; 36415; 80048; 82962; 85027; 85610; 85730; 86850; 86900; 86901; 87070; 87075; 87205; 94799; C1713; C9290; J0131; J0690; J1200; J1741; J1815; J2250; J2270; J2405; J2704; J3010; J3370; J3490; J7050; J7060; J7120; S0119

== ENCOUNTER 2018-09-18 09:38 | Emergency (ER) | payer BC ==
[2018-09-18 11:13] LABS: ABSOLUTE BASOPHILS # (AUTO) 0.1 10^3/uL (0.0-0.2); ABSOLUTE EOSINOPHILS # (AUTO) 0.1 10^3/uL (0.0-0.6); ABSOLUTE MONOCYTES (AUTO) 0.8 10^3/uL (0.1-1.4); BASOPHILS % (AUTO) 0.8 % (0-2); EOSINOPHILS % (AUTO) 1.2 % (0-6); HEMATOCRIT 44.8 % (37.9-51.0); HEMOGLOBIN 15.3 g/dL (13.5-17.0); LYMPHOCYTES % (AUTO) 25.4 % (13-45); MEAN CORPUSCULAR HEMOGLOBIN 31.5 pg (27.0-33.4); MEAN CORPUSCULAR HGB CONC 34.3 g/dL (32.0-36.0); MEAN CORPUSCULAR VOLUME 92 fl (80-97); MONOCYTES % (AUTO) 10.5 % (3-13); PLATELET COUNT 166 10^3/uL (150-450); RED BLOOD COUNT 4.87 10^6/uL (4.35-5.55); RED CELL DISTRIBUTION WIDTH 14.5 % (11.5-14.0); SEGMENTED NEUTROPHILS % (AUTO) 62.1 % (42-78); TOTAL CELLS COUNTED % (AUTO) 100 %; WHITE BLOOD COUNT 8.1 10^3/uL (4.0-10.5)
[2018-09-18 11:37] LABS: ALANINE AMINOTRANSFERASE 60 U/L (21-72); ALBUMIN 4.5 g/dL (3.5-5.0); ALCOHOL 173 mg/dL (NONE DETECTED); ALKALINE PHOSPHATASE 126 U/L (38-126); ANION GAP 14 (5-19); ASPARTATE AMINO TRANSFERASE 59 U/L (17-59); BILIRUBIN,DIRECT 0.4 mg/dL (0.0-0.4); BILIRUBIN,TOTAL 0.7 mg/dL (0.2-1.3); BLOOD UREA NITROGEN 22 mg/dL (7-20); CALCIUM 10.4 mg/dL (8.4-10.2); CARBON DIOXIDE 29 mmol/L (22-30); CHLORIDE 95 mmol/L (98-107); GLUCOSE 205 mg/dL (75-110); POTASSIUM 4.7 mmol/L (3.6-5.0); SODIUM 138.2 mmol/L (137-145); TOTAL PROTEIN 7.5 g/dL (6.3-8.2)
[2018-09-18 11:44] LABS: ACETAMINOPHEN < 10 ug/mL (10-30); SALICYLATE < 1.0 mg/dL (2.0-20.0)
--- NOTE | 2018-09-18 12:37 | EKG REPORT ---
SEVERITY:- ABNORMAL ECG - SINUS RHYTHM NONSPECIFIC INTRAVENTRICULAR CONDUCTION DELAY : Confirmed by: Luz Marina Saavedra MD 18-Sep-2018 12:36:33
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
[2018-09-18] MEDS ORDERED: ATORVASTATIN CALCIUM 80 MG TABLET PO ONE ×2 (14:05→17:00)
[2018-09-18] MEDS ORDERED: LISINOPRIL 5 MG TABLET PO ONE (14:06)
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
[2018-09-18] MEDS: VENLAFAXINE HCL 37.5 MG CAP.SR.24H PO SCH ×2 (16:10→19:30)
[2018-09-18] MEDS: BUSPIRONE HCL 10 MG TABLET PO SCH ×2 (16:11→19:30)
[2018-09-18 16:18] LABS: APPEARANCE,URINE CLEAR; BILIRUBIN,URINE NEGATIVE (NEGATIVE); COLOR,URINE STRAW; GLUCOSE, URINE 50 mg/dL (NEGATIVE); KETONES,URINE NEGATIVE (NEGATIVE); LEUKOCYTE ESTERASE,URINE SMALL (NEGATIVE); NITRITE,URINE NEGATIVE (NEGATIVE); PROTEIN,URINE NEGATIVE (NEGATIVE); URINE SPECIFIC GRAVITY 1.008; UROBILINOGEN,URINE NEGATIVE mg/dL (<2.0)
[2018-09-18 16:30] LABS: URINE AMPHETAMINES SCREEN NEGATIVE; URINE BARBITURATES SCREEN NEGATIVE; URINE BENZODIAZEPINES SCREEN NEGATIVE; URINE COCAINE SCREEN NEGATIVE; URINE MARIJUANA (THC) SCREEN NEGATIVE; URINE METHADONE SCREEN NEGATIVE; URINE PHENCYCLIDINE SCREEN NEGATIVE
[2018-09-18] MEDS: MELOXICAM 7.5 MG TABLET PO SCH (17:45)
[2018-09-18] MEDS: METOPROLOL TARTRATE 25 MG TABLET PO SCH (19:02)
[2018-09-18] MEDS: FUROSEMIDE 40 MG TABLET PO SCH (19:03)
[2018-09-18] MEDS: METFORMIN HCL 500 MG TABLET PO SCH (19:03)
[2018-09-19 07:02] VITALS: BP 136/93
--- NOTE | 2018-09-19 10:00 | ER Document Report ---
Doctor's Note Notes: 09/19/18 09:58 As the rounding physician this AM, I assessed the patient's labs, vitals, and records. No concerning findings this morning. Patient denies any acute complaints. Patient is cleared for disposition by behavioral health team. Patient provided information for substance abuse. He will be discharged home in stable condition. PHYSICAL EXAMINATION: GENERAL: Well-appearing, well-nourished and in no acute distress. HEAD: Atraumatic, normocephalic. EYES: Pupils equal round extraocular movements intact, conjunctiva are normal. ENT: Nares patent NECK: Normal range of motion LUNGS: No respiratory distress Musculoskeletal: Normal range of motion NEUROLOGICAL: Normal speech, normal gait. PSYCH: Normal mood, normal affect. SKIN: Warm, Dry, normal turgor, no rashes or lesions noted. 09/19/18 11:26
[2018-09-19] MEDS: VENLAFAXINE HCL 37.5 MG CAP.SR.24H PO SCH (10:06)
[2018-09-19] MEDS: FUROSEMIDE 40 MG TABLET PO SCH (10:06)
[2018-09-19] MEDS: METFORMIN HCL 500 MG TABLET PO SCH (10:07)
[2018-09-19] MEDS: METOPROLOL TARTRATE 25 MG TABLET PO SCH (10:07)
[2018-09-19] MEDS: BUSPIRONE HCL 10 MG TABLET PO SCH (10:07)
[2018-09-19] MEDS: MELOXICAM 7.5 MG TABLET PO SCH (10:09)
--- NOTE | 2018-09-21 05:57 | PSYCHOLOGICAL NOTE ---
Psych Note - Psych Note Date seen by psych provider: 09/19/18 Time seen by psych provider: 08:00 Psych Note: Reason for consult:SI, ETOH Contact Permissions: Patient is a 63 yo male presenting to the ED Patient denies depressive sx's. Patient is alert and oriented x 4. Mood is euthymic with congruent affect aeb bright smiling. Patient denies SI, HI, and AV/H, does not appear to be responding to internal stimuli, and no delusions were noted. Conversational speech was WNL for rate, tone, and prosody. Eye contact was well maintained. Thought processes were linear, organized, and rational. Intellectual abilities were estimated within the average range. Attention/concentration was WNL while, insight, judgment, and impulse control were good. Diagnosis: 305.00 (F10.10) Alcohol Use Disorder, Mild Medication recommendations as per psychiatric provider, Dr. Juárez are as follows: No medication recommendations at this time Impression/Plan: Patient is psychiatrically clear from acute psychiatric services and recommended to rescind IVC due to risk of harm to self or others aeb Patient denies/endorses SI, HI, and AV/H, does not appear to be responding to internal stimuli, and no delusions were noted. Plan is to discharge to home to his /self-care with follow up S/A counseling. Behavioral Health provided psychoeducation to patient on risks and consequences of long-term alcohol use, benefits of S/A counseling and list of local providers who offer this service. He was made aware of [facility] and how to contact. Patient verbalized that he understood and was reconsidering his alcohol use and possibility of treatment. Consulted Dr. Watson in the care and treatment of this patient and ED physician who is in agreement with disposition and recommendation.
== END 2018-09-19 12:11 | disposition home or self-care (01) ==
LOC: ER 09:38
DX: F10.10 Alcohol abuse, uncomplicated (principal); R45.851 Suicidal ideations; I25.10 Atherosclerotic heart disease of native coronary artery without angina pectoris; E78.5 Hyperlipidemia, unspecified; I10 Essential (primary) hypertension; E11.9 Type 2 diabetes mellitus without complications
CPT/HCPCS: 93005; 99285; 36415; 82962; 80307 ×4; 85025; 80053; 81001; 93010; 94660; J3490 ×2

== ENCOUNTER 2019-04-10 17:08 | Observation (INO) | payer BC ==
[2019-04-10 18:03] LABS: ABSOLUTE BASOPHILS # (AUTO) 0.1 10^3/uL (0.0-0.2); ABSOLUTE LYMPHOCYTES (AUTO) 1.1 10^3/uL (0.5-4.7); ABSOLUTE MONOCYTES (AUTO) 1.1 10^3/uL (0.1-1.4); ABSOLUTE NEUT (AUTO) 14.9 10^3/uL (1.7-8.2); BASOPHILS % (AUTO) 0.4 % (0-2); HEMATOCRIT 44.5 % (37.9-51.0); HEMOGLOBIN 15.2 g/dL (13.5-17.0); LYMPHOCYTES % (AUTO) 6.4 % (13-45); MEAN CORPUSCULAR HEMOGLOBIN 30.5 pg (27.0-33.4); MEAN CORPUSCULAR HGB CONC 34.3 g/dL (32.0-36.0); MEAN CORPUSCULAR VOLUME 89 fl (80-97); MONOCYTES % (AUTO) 6.6 % (3-13); PLATELET COUNT 181 10^3/uL (150-450); RED CELL DISTRIBUTION WIDTH 13.2 % (11.5-14.0); SEGMENTED NEUTROPHILS % (AUTO) 86.6 % (42-78); TOTAL CELLS COUNTED % (AUTO) 100 %; WHITE BLOOD COUNT 17.2 10^3/uL (4.0-10.5)
--- NOTE | 2019-04-10 18:05 | RADIOLOGY REPORT (SQ) ---
EXAM DESCRIPTION: CHEST SINGLE VIEW COMPLETED DATE/TIME: 04/10/2019 5:48 pm REASON FOR STUDY: chest pain COMPARISON: 05/31/2015 EXAM PARAMETERS: NUMBER OF VIEWS: One view. TECHNIQUE: Single frontal radiographic view of the chest acquired. RADIATION DOSE: NA LIMITATIONS: None. FINDINGS: LUNGS AND PLEURA: No opacities, masses or pneumothorax. No pleural effusion. MEDIASTINUM AND HILAR STRUCTURES: No masses. Contour normal. HEART AND VASCULAR STRUCTURES: Stable marked cardiomegaly. Post sternotomy for CABG. BONES: No acute findings. HARDWARE: None in the chest. OTHER: No other significant finding. IMPRESSION: NO ACUTE RADIOGRAPHIC FINDING IN THE CHEST. TECHNICAL DOCUMENTATION: JOB ID: [id number] [employer]- All Rights Reserved Reading location - IP/workstation name: [facility]
[2019-04-10 18:13] LABS: ALBUMIN 3.7 g/dL (3.5-5.0); ALKALINE PHOSPHATASE 113 U/L (38-126); ANION GAP 10 (5-19); ASPARTATE AMINO TRANSFERASE 27 U/L (17-59); BILIRUBIN,DIRECT 0.2 mg/dL (0.0-0.4); BILIRUBIN,TOTAL 0.9 mg/dL (0.2-1.3); BLOOD UREA NITROGEN 16 mg/dL (7-20); CALCIUM 9.6 mg/dL (8.4-10.2); CARBON DIOXIDE 24 mmol/L (22-30); CHLORIDE 98 mmol/L (98-107); CREATINE KINASE 35 U/L (55-170); GLUCOSE 239 mg/dL (75-110); POTASSIUM 3.9 mmol/L (3.6-5.0); TOTAL PROTEIN 6.2 g/dL (6.3-8.2)
[2019-04-10 18:25] LABS: CREATINE KINASE MB 0.42 ng/mL (<4.55); TROPONIN I 0.015 ng/mL
[2019-04-10] MEDS ORDERED: NAPROXEN 250 MG TABLET PO ONE (18:37)
--- NOTE | 2019-04-10 18:38 | ER Document Report ---
ED Cardiac - General Chief Complaint: Chest Pain Stated Complaint: CHEST PAIN Time Seen by Provider: 04/10/19 18:08 Primary Care Provider: DOROTHY CASANOVA MD [Primary Care Provider] - Follow up as needed TRAVEL OUTSIDE OF THE [place] IN LAST 30 DAYS: No - HPI Notes: Patient is a 63-year-old male that presents to the emergency department for chief complaint of chest pain. Patient reports history of CAD with 5 stents and CABG x4 in the past. He is compliant with his aspirin and Plavix. He has taken 325 mg of aspirin today. Patient reports having intermittent left-sided chest pain with associated shortness of breath nausea and diaphoresis throughout the day today. He states they come in spurts but have been getting more severe as the day goes on. He denies any radiation of his pain. He denies aggravating or relieving factors when the pain is present. Patient states this feels similar to previous heart attacks he has had in the past. He has taken 1 nitro today and now reports mild diffuse throbbing headache. He denies recent illness, cough, fevers, diarrhea and vomiting. Past Medical History: CAD, diabetes, hypertension, hyperlipidemia Past Surgical History: CABG x4, coronary stent x5 Social History: Denies current drug alcohol or tobacco use Family History: Reviewed and noncontributory for presenting illness Allergies: Reviewed, see documented allergy list. REVIEW OF SYSTEMS: CONSTITUTIONAL : No fever No chills diaphoresis No recent illness EENT: No vision changes No congestion No sore throat CARDIOVASCULAR: chest pain No palpitations RESPIRATORY: shortness of breath No cough No difficulty breathing GASTROINTESTINAL: No abdominal pain nausea No vomiting No diarrhea GENITOURINARY: No dysuria No hematuria No difficulty urinating MUSCULOSKELETAL: No back pain No leg pain No arm pain SKIN: No rashes No lesions LYMPHATIC: No swollen, enlarged glands. NEUROLOGICAL: No lightheadedness No headache No weakness No paresthesias PSYCHIATRIC: No anxiety No depression PHYSICAL EXAMINATION: Vital signs reviewed, nursing noted reviewed. GENERAL: Well-appearing, obese and in no acute distress. HEAD: Atraumatic, normocephalic. EYES: Eyes appear normal, extraocular movements intact, sclera anicteric, conjunctiva are normal. ENT: nares patent, oropharynx clear without exudates. Moist mucous membranes. NECK: Normal range of motion, supple without lymphadenopathy LUNGS: Breath sounds clear to auscultation bilaterally and equal. No wheezes rales or rhonchi. HEART: Regular rate and rhythm without murmurs ABDOMEN: Soft, nontender, normoactive bowel sounds. No rebound, guarding, or rigidity. No masses appreciated. EXTREMITIES: Nontender, good range of motion, no pitting or edema. NEUROLOGICAL: No focal neurological deficits. Moves all extremities spontaneously Motor and sensory grossly intact on exam. PSYCH: Normal mood, normal affect. SKIN: Warm, Dry, normal turgor, no rashes or lesions noted on exposed skin - Related Data Allergies/Adverse Reactions: chlorzoxazone [From Parafon Forte] Allergy (Intermediate, Verified 09/18/18 09:58) rash/itch iodine [Iodine] Allergy (Intermediate, Verified 09/18/18 09:58) rash/itch Shellfish * [Shellfish] Allergy (Intermediate, Verified 09/18/18 09:58) rash/itch peanut Allergy (Verified 09/18/18 09:58) Past Medical History - Social History Smoking Status: Never Smoker Chew tobacco use (# tins/day): No Frequency of alcohol use: Social Drug Abuse: None Family History: Reviewed & Not Pertinent Patient has suicidal ideation: No Patient has homicidal ideation: No - Past Medical History Cardiac Medical History: Reports: Hx Congestive Heart Failure, Hx Coronary Artery Disease, Hx Heart Attack - Mar 2011 (CABG) & Feb 2013 (cath w/stent), Hx Hypercholesterolemia, Hx Hypertension Denies: Hx Atrial Fibrillation, Hx Peripheral Vascular Disease, Hx Pulmonary Embolism, Hx Heart Murmur Pulmonary Medical History: Reports: Hx Pneumonia - , Hx Sleep Apnea - CPAP Denies: Hx Asthma, Hx Bronchitis, Hx COPD, Hx Respiratory Failure, Hx Tuberculosis Neurological Medical History: Denies: Hx Cerebrovascular Accident, Hx Seizures, Hx Parkinson's Disease Endocrine Medical History: Reports: Hx Diabetes Mellitus Type 2. Denies: Hx Graves' Disease, Hx Hyperthyroidism, Hx Hypothyroidism Renal/ Medical History: Denies: Hx Benign Prostatic Hyperplasia, Hx End Stage Renal Disease, Hx Kidney Stones, Hx Peritoneal Dialysis Malignancy Medical History: Denies Hx Leukemia, Denies Hx Lung Cancer GI Medical History: Reports: Hx Gastroesophageal Reflux Disease, Hx Ulcer - 1989. Denies: Hx Crohn's Disease, Hx Hiatal Hernia, Hx Irritable Bowel, Hx Liver Failure, Hx Pancreatitis Musculoskeletal Medical History: Reports Hx Arthritis, Denies Hx Fibromyalgia, Denies Hx Multiple Sclerosis, Denies Hx Muscular Dystrophy, Denies Hx Systemic Lupus Erythematosus Psychiatric Medical History: Denies: Hx Dementia, Hx Depression Traumatic Medical History: Denies: Hx Fractures Infectious Medical History: Denies: Hx HIV Past Surgical History: Reports: Hx Appendectomy - at age [age] years old, Hx Cardiac Surgery - stents, Hx Coronary Artery Bypass Graft - 2011, 3 vessel, [place], Hx Tonsillectomy. Denies: Hx Bowel Surgery, Hx Cholecystectomy, Hx Colostomy, Hx Gastric Bypass Surgery, Hx Herniorrhaphy, Hx Pacemaker - Immunizations Hx Pneumococcal Vaccination: 05/13/16 Physical Exam - Vital signs Vitals: Pulse Ox 93 04/10/19 17:10 Course - Re-evaluation Re-evalutation: 04/10/19 18:40 Vitals reviewed. Nursing notes reviewed. Patient is well-appearing and in no acute distress. He is currently chest pain-free. He has had a full dose of aspirin and 1 sibling will nitro prior to coming to the emergency room. Patient complaining of a headache and is requesting naproxen. His chest x-ray shows no underlying cardiopulmonary process including pulmonary vascular congestion or pneumothorax. Patient has a negative initial troponin. His EKG is unchanged from prior. He does have a leukocytosis which may be a stress reaction from his pain. He is not currently on steroids and is not having any diarrhea to suggest C. difficile. He has not had fevers or any other symptoms of infection prior to his chest pain today. Patient will be admitted to the hospital for continued telemetry monitoring and cardiac evaluation. Care discussed with Dr. Peña Laboratory 04/10/19 04/10/19 04/10/19 17:30 17:30 17:30 WBC 17.2 H RBC 5.00 Hgb 15.2 Hct 44.5 MCV 89 MCH 30.5 MCHC 34.3 RDW 13.2 Plt Count 181 Lymph % (Auto) 6.4 L [place] % (Auto) 6.6 Eos % (Auto) 0.0 Baso % (Auto) 0.4 Absolute Neuts (auto) 14.9 H Absolute Lymphs (auto) 1.1 Absolute Monos (auto) 1.1 Absolute Eos (auto) 0.0 Absolute Basos (auto) 0.1 Seg Neutrophils % 86.6 H Sodium 132.4 L Potassium 3.9 Chloride 98 Carbon Dioxide 24 Anion Gap 10 BUN 16 Creatinine 0.88 Est GFR ( Amer) > 60 Est GFR (MDRD) Non-Af > 60 Glucose 239 H Calcium 9.6 Total Bilirubin 0.9 Direct Bilirubin 0.2 Neonat Total Bilirubin Not Reportable Neonat Direct Bilirubin Not Reportable Neonat Indirect Bili Not Reportable AST 27 ALT 38 Alkaline Phosphatase 113 Creatine Kinase 35 L CK-MB (CK-2) 0.42 Troponin I 0.015 Total Protein 6.2 L Albumin 3.7 Chest X-Ray 04/10/19 17:10 IMPRESSION: NO ACUTE RADIOGRAPHIC FINDING IN THE CHEST. accepts admission. - Vital Signs Vital signs: Temp Pulse Resp BP Pulse Ox 93 04/10/19 17:10 - Laboratory Result Diagrams: 04/10/19 17:30 04/10/19 17:30 Laboratory results interpreted by me: 04/10/19 04/10/19 17:30 17:30 WBC 17.2 H Lymph % (Auto) 6.4 L Absolute Neuts (auto) 14.9 H Seg Neutrophils % 86.6 H Sodium 132.4 L Glucose 239 H Creatine Kinase 35 L Total Protein 6.2 L - EKG Interpretation by Me Additional EKG results interpreted by me: 04/10/19 18:40 Interpreted by myself 1721: Normal sinus rhythm, rate 88, normal axis, poor R wave progression, no STEMI, no significant change from 09/18/2018 Discharge - Discharge Clinical Impression: Hyponatremia Chest pain Qualifiers: Chest pain type: unspecified Qualified Code(s): R07.9 - Chest pain, unspecified Leukocytosis Qualifiers: Leukocytosis type: unspecified Qualified Code(s): D72.829 - Elevated white blood cell count, unspecified Condition: Stable Disposition: ADMITTED OBSERVATION Admitting Provider: Mariana (Hospitalist) Unit Admitted: Telemetry Referrals: DOROTHY CASANOVA MD [Primary Care Provider] - Follow up as needed
[2019-04-10] MEDS ORDERED: NORMAL SALINE 1000 ML 1,000 ML IV ONE (18:42)
[2019-04-10] MEDS ORDERED: ONDANSETRON HCL INJ/PF 4 MG/2 ML SDV IV PRN (18:49)
[2019-04-10] MEDS ORDERED: DEXTROSE 40% GEL 15 GM TUBE PO PRN ×4 (18:49→18:53)
[2019-04-10] MEDS ORDERED: MAG HYDROX/AL HYDROX/SIMETH SUSP 30 ML UDCUP PO PRN (18:49)
[2019-04-10] MEDS ORDERED: GLUCAGON,HUMAN RECOMB 1 MG INJ SUBCUT PRN (18:49)
[2019-04-10] MEDS ORDERED: DEXTROSE 50%-WATER 25 GM/50 ML DISP.SYRIN IV PRN ×4 (18:49→18:53)
[2019-04-10] MEDS ORDERED: NORMAL SALINE 1000 ML 1,000 ML IV PRN (18:49)
[2019-04-10] MEDS ORDERED: TEMAZEPAM 7.5 MG CAPSULE PO PRN (18:49)
[2019-04-10] MEDS ORDERED: OXYCODONE-ACETAMINOPHEN 5-325 MG TABLET PO PRN (18:49)
[2019-04-10] MEDS ORDERED: ACETAMINOPHEN 325 MG TABLET PO PRN (18:49)
[2019-04-10] MEDS ORDERED: GLUCAGON,HUMAN RECOMB 1 MG INJ IM PRN (18:53)
[2019-04-10] MEDS ORDERED: MORPHINE SULFATE 10 MG/ML INJ IV PRN (18:54)
[2019-04-10] MEDS ORDERED: NITROGLYCERIN 0.4 MG/TAB 25 TAB/BOTTLE SL PRN (18:54)
[2019-04-10] MEDS ORDERED: ASPIRIN 325 MG TABLET, ENT COATED PO ONE (18:55)
[2019-04-10] MEDS ORDERED: HYDRALAZINE HCL INJ/PF 20 MG/1 ML SDV IV PRN (18:59)
--- NOTE | 2019-04-10 19:06 | PDOC H&P ---
History of Present Illness Admission Date/PCP: 04/10/19 18:39 DOROTHY CASANOVA MD History of Present Illness: RAMON KIRBY is a 63 year old male CAD post PCI for stents, CHF, hyperlipidemia, CABG, hypertension, diabetes, presenting to ED complaining of left-sided, sharp "jolt like" pain, lasting 3 to 4 seconds, nonradiating, not relieved with nitroglycerin, no alleviating factor identified, worse with cough, associated with diaphoresis and productive cough. Patient has been coughing for the last 2 weeks, was given Augmentin by PCP with no relief of his cough. Due to extensive past medical history of CAD patient concerned that he may have had another heart attack. Patient had a negative stress test on November 2018. Denies any fever, chills, nausea, vomiting, diarrhea, constipation or any urinary symptoms. In ED EKG showed no significant changes, initial troponin 0 0.015, CBC WBC of 17,000. Hospitalist was consulted for admission. Past Medical History Cardiac Medical History: Reports: Congestive Heart Failure, Coronary Artery Disease, Myocardial Infarction - Mar 2011 (CABG) & Feb 2013 (cath w/stent), Hyperlipidema, Hypertension Denies: Atrial Fibrillation, Peripheral Vascular Disease, Pulmonary Embolism, Heart Murmur Pulmonary Medical History: Reports: Pneumonia - , Sleep Apnea - CPAP Denies: Asthma, Bronchitis, Chronic Obstructive Pulmonary Disease (COPD), Respiratory Failure, Tuberculosis Neurological Medical History: Denies: Seizures Endocrine Medical History: Reports: Diabetes Mellitus Type 2 Denies: Hyperthyroidism, Hypothyroidism Renal/ Medical History: Denies: End Stage Renal Disease Malignancy Medical History: Denies: Leukemia, Lung Cancer GI Medical History: Reports: Gastroesophageal Reflux Disease Denies: Crohn's Disease, Hiatal Hernia Musculoskeltal Medical History: Reports: Arthritis Denies: Fibromyalgia Psychiatric Medical History: Denies: Dementia, Depression Hematology: Denies: Anemia, Hemophilia, Sickle Cell Disease Infectious Medical History: Denies: HIV Past Surgical History Past Surgical History: Reports: Appendectomy - at age [age] years old, Coronary Artery Bypass Graft - 2010, 3 vessel, [place], Tonsillectomy Denies: Cholecystectomy, Colostomy, Gastric Bypass Surgery, Herniorrhaphy, Pacemaker Social History Smoking Status: Never Smoker Frequency of Alcohol Use: Occasional Hx Recreational Drug Use: No Hx Prescription Drug Abuse: No Family History Family History: Reviewed & Not Pertinent Parental Family History Reviewed: Yes Children Family History Reviewed: Yes Sibling(s) Family History Reviewed.: Yes Medication/Allergy Home Medications: Amlodipine Besylate [Norvasc 2.5 mg Tablet] 2.5 mg PO DAILY 05/25/17 Atorvastatin Calcium [Lipitor 80 mg Tablet] 80 mg PO QHS 05/25/17 Clopidogrel Bisulfate [Plavix 75 mg Tablet] 75 mg PO DAILY 05/25/17 Furosemide [Lasix 40 mg Tablet] 80 mg PO DAILY 05/25/17 Isosorbide Mononitrate [Isosorbide Mononitrate ER] 30 mg PO DAILY 05/25/17 Lisinopril [Prinivil 5 mg Tablet] 2.5 mg PO DAILY 05/25/17 Meloxicam [Mobic] 7.5 mg PO DAILYP PRN 05/25/17 Metoprolol Tartrate [Lopressor 50 mg Tablet] 25 mg PO Q12 05/25/17 Aspirin [Ecotrin 81 mg EC Tablet] 81 mg PO DAILY 09/18/18 Sitagliptin Phos/Metformin HCl [Janumet 50-500 mg Tablet] 1 each PO BID 09/18/18 Amox Tr/Potassium Clavulanate [Augmentin 875-125 mg Tablet] 1 tab PO BID 04/11/19 Docusate Sodium [Stool Softener] 250 mg PO DAILY 04/11/19 Duloxetine HCl [Cymbalta] 60 mg PO DAILY 04/11/19 Levofloxacin [Levaquin 500 mg Tablet] 500 mg PO DAILY 5 Days #5 tablet 04/11/19 Naproxen Sodium [Aleve] 220 mg PO BID 04/11/19 Nitroglycerin [Gonitro] 400 mcg SL ASDIR PRN 04/11/19 Omeprazole 20 mg PO DAILY 04/11/19 Pregabalin [Lyrica 100 Mg Capsule] 100 mg PO DAILY 04/11/19 Allergies/Adverse Reactions: chlorzoxazone [From Parafon Forte] Allergy (Intermediate, Verified 09/18/18 09:58) rash/itch iodine [Iodine] Allergy (Intermediate, Verified 09/18/18 09:58) rash/itch Shellfish * [Shellfish] Allergy (Intermediate, Verified 09/18/18 09:58) rash/itch peanut Allergy (Verified 09/18/18 09:58) Review of Systems ROS unobtainable: Other - as per hpi Physical Exam Vital Signs: Temp Pulse Resp BP Pulse Ox 93 04/10/19 17:10 Intake & Output 04/09/19 04/10/19 04/11/19 06:59 06:59 06:59 Weight 134 kg General appearance: PRESENT: obese Respiratory exam: PRESENT: clear to auscultation [place]. ABSENT: rales, rhonchi, wheezes Cardiovascular exam: PRESENT: RRR. ABSENT: diastolic murmur, rubs, systolic murmur GI/Abdominal exam: PRESENT: normal bowel sounds, soft. ABSENT: distended, guarding, mass, organolmegaly, rebound, tenderness Extremities exam: PRESENT: full ROM. ABSENT: calf tenderness, clubbing, pedal edema Neurological exam: PRESENT: alert, awake, oriented to person, oriented to place, oriented to time, oriented to situation, CN II-XII grossly intact. ABSENT: motor sensory deficit Results Laboratory Results: 04/10/19 17:30 04/10/19 17:30 04/10/19 04/10/19 17:30 17:30 WBC 17.2 H RBC 5.00 Hgb 15.2 Hct 44.5 MCV 89 MCH 30.5 MCHC 34.3 RDW 13.2 Plt Count 181 Seg Neutrophils % 86.6 H Sodium 132.4 L Potassium 3.9 Chloride 98 Carbon Dioxide 24 Anion Gap 10 BUN 16 Creatinine 0.88 Est GFR ( Amer) > 60 Glucose 239 H Calcium 9.6 Total Bilirubin 0.9 AST 27 Alkaline Phosphatase 113 Total Protein 6.2 L Albumin 3.7 04/10/19 04/10/19 17:30 17:30 Creatine Kinase 35 L CK-MB (CK-2) 0.42 Troponin I 0.015 Impressions: Chest X-Ray 04/10/19 17:10 IMPRESSION: NO ACUTE RADIOGRAPHIC FINDING IN THE CHEST. Assessment and Plan - Diagnosis (1) Chest pain Qualifiers: Chest pain type: unspecified Qualified Code(s): R07.9 - Chest pain, unspecified Is this a current diagnosis for this admission?: Yes Plan: Given patient's symptoms this is all very likely to be cardiac origin. Pain is sharp, lasts about 3 to 4 seconds, not relieved with nitroglycerin. Chest pain likely due to underlying pneumonia, patient has been coughing for the last 2 weeks has been on Augmentin with no relief of his symptoms. Patient had a stress test in November 2018 which was negative as per patient. Admit to telemetry,trend troponin, antiplatelets, beta-blockers, MANDIE, statins. We will get nuclear stress test for further risk stratification. (2) Pneumonia Is this a current diagnosis for this admission?: Yes Plan: Likely community-acquired pneumonia. Patient has been coughing for the last 2 weeks, on Augmentin by PCP no relief of his symptoms. Start on empiric IV antibiotics, sputum and blood culture.
[2019-04-10] MEDS ORDERED: CEFTRIAXONE 1 GM/D5W RTU 1 GM/50 ML RTUPB IV ONE (20:00)
[2019-04-10] MEDS ORDERED: IPRATROPIUM/ALBUTEROL 0.5-2.5 MG/3 ML AMPUL NEB ONE (20:17)
[2019-04-10] MEDS: IPRATROPIUM/ALBUTEROL 0.5-2.5 MG/3 ML AMPUL NEB SCH (20:20)
[2019-04-10] MEDS ORDERED: ATORVASTATIN CALCIUM 80 MG TABLET PO SCH (22:00)
[2019-04-10] MEDS: HEPARIN SOD (PORCINE) 5,000 UNIT/ML 1 ML VIAL SUBCUT SCH (22:33)
[2019-04-10] MEDS: FAMOTIDINE 20 MG TABLET PO SCH (22:35)
[2019-04-10] MEDS: INSULIN LISPRO 100 UNIT/ML 3 ML VIAL SUBCUT SCH (23:51)
--- NOTE | 2019-04-11 00:57 | EKG REPORT ---
SEVERITY:- ABNORMAL ECG - SINUS RHYTHM NONSPECIFIC INTRAVENTRICULAR CONDUCTION DELAY BORDERLINE R WAVE PROGRESSION, ANTERIOR LEADS : Confirmed by: Veronika Phipps 11-Apr-2019 00:55:32
[2019-04-11] MEDS: HEPARIN SOD (PORCINE) 5,000 UNIT/ML 1 ML VIAL SUBCUT SCH (05:26)
[2019-04-11 06:10] LABS: ABSOLUTE EOSINOPHILS # (AUTO) 0.1 10^3/uL (0.0-0.6); ABSOLUTE LYMPHOCYTES (AUTO) 1.8 10^3/uL (0.5-4.7); ABSOLUTE NEUT (AUTO) 7.1 10^3/uL (1.7-8.2); BASOPHILS % (AUTO) 0.3 % (0-2); EOSINOPHILS % (AUTO) 0.8 % (0-6); HEMATOCRIT 42.9 % (37.9-51.0); HEMOGLOBIN 14.6 g/dL (13.5-17.0); LYMPHOCYTES % (AUTO) 17.9 % (13-45); MEAN CORPUSCULAR HEMOGLOBIN 30.4 pg (27.0-33.4); MEAN CORPUSCULAR VOLUME 89 fl (80-97); MONOCYTES % (AUTO) 9.6 % (3-13); PLATELET COUNT 157 10^3/uL (150-450); RED CELL DISTRIBUTION WIDTH 13.2 % (11.5-14.0); SEGMENTED NEUTROPHILS % (AUTO) 71.4 % (42-78); TOTAL CELLS COUNTED % (AUTO) 100 %
[2019-04-11 06:11] LABS: INTERNATIONAL RATION (INR) 1.11; PROTHROMBIN TIME 14.3 SEC (11.4-15.4)
[2019-04-11 06:29] LABS: ANION GAP 6 (5-19); BLOOD UREA NITROGEN 15 mg/dL (7-20); CALCIUM 9.6 mg/dL (8.4-10.2); CARBON DIOXIDE 31 mmol/L (22-30); CHLORIDE 101 mmol/L (98-107); GLUCOSE 149 mg/dL (75-110); POTASSIUM 4.4 mmol/L (3.6-5.0)
[2019-04-11 07:46] VITALS: BP 130/75
[2019-04-11] MEDS: IPRATROPIUM/ALBUTEROL 0.5-2.5 MG/3 ML AMPUL NEB SCH (07:51)
[2019-04-11] MEDS: INSULIN LISPRO 100 UNIT/ML 3 ML VIAL SUBCUT SCH (08:13)
[2019-04-11] MEDS ORDERED: CEFTRIAXONE 1 GM/D5W RTU 1 GM/50 ML RTUPB IV ONE ×2 (09:04→09:15)
[2019-04-11] MEDS: FAMOTIDINE 20 MG TABLET PO SCH (09:07)
[2019-04-11] MEDS ORDERED: FUROSEMIDE 40 MG TABLET PO SCH (10:00)
[2019-04-11] MEDS ORDERED: METOPROLOL TARTRATE 25 MG TABLET PO SCH (10:00)
[2019-04-11] MEDS ORDERED: ISOSORBIDE MONONITRATE 60 MG TAB.ER.24H PO SCH (10:00)
[2019-04-11] MEDS ORDERED: DOCUSATE SODIUM 100 MG CAPSULE PO SCH (10:00)
[2019-04-11] MEDS ORDERED: CLOPIDOGREL BISULFATE 75 MG TABLET PO SCH (10:00)
[2019-04-11] MEDS ORDERED: LISINOPRIL 5 MG TABLET PO SCH (10:00)
[2019-04-11] MEDS ORDERED: AMLODIPINE BESYLATE 2.5 MG TABLET PO SCH (10:00)
[2019-04-11] MEDS ORDERED: PREGABALIN 100 MG CAPSULE PO SCH (10:00)
[2019-04-11] MEDS ORDERED: ASPIRIN 81 MG TABLET, CHEWABLE PO SCH (10:00)
[2019-04-11] MEDS ORDERED: DULOXETINE HCL 30 MG CAPSULE.DR PO SCH (10:00)
--- NOTE | 2019-04-11 11:25 | RADIOLOGY REPORT (SQ) ---
EXAM DESCRIPTION: CHEST 2 VIEWS COMPLETED DATE/TIME: 04/11/2019 10:08 am REASON FOR STUDY: Cough, Chest pain COMPARISON: AP chest 04/10/2019 Two-view chest 05/19/2017 EXAM PARAMETERS: NUMBER OF VIEWS: two views TECHNIQUE: Digital Frontal and Lateral radiographic views of the chest acquired. RADIATION DOSE: NA LIMITATIONS: none FINDINGS: LUNGS AND PLEURA: No opacities, masses or pneumothorax. No pleural effusion. MEDIASTINUM AND HILAR STRUCTURES: No masses or contour abnormalities. HEART AND VASCULAR STRUCTURES: Stable moderate to marked cardiomegaly. Old sternotomy for CABG. BONES: No acute findings. HARDWARE: None in the chest. OTHER: No other significant finding. IMPRESSION: Cardiomegaly and CABG. No acute infiltrates. No pleural effusions. TECHNICAL DOCUMENTATION: JOB ID: [id number] [employer]- All Rights Reserved Reading location - IP/workstation name: [email or web address]
--- NOTE | 2019-04-11 13:59 | PDOC DISCHARGE SUMMARY ---
Impression - Admit/DC Date/PCP Admission Date/Primary Care Provider: 04/10/19 18:39 DOROTHY CASANOVA MD Discharge Date: 04/11/19 - Discharge Diagnosis (1) Chest pain Is this a current diagnosis for this admission?: Yes (2) Pneumonia Is this a current diagnosis for this admission?: Yes (3) HTN (hypertension) Is this a current diagnosis for this admission?: Yes (4) CAD (coronary artery disease) Is this a current diagnosis for this admission?: Yes (5) Hyperlipidemia Is this a current diagnosis for this admission?: Yes (6) SALLY (obstructive sleep apnea) Is this a current diagnosis for this admission?: Yes (7) CHF (congestive heart failure) Is this a current diagnosis for this admission?: Yes (8) Obesity (BMI 30-39.9) Is this a current diagnosis for this admission?: Yes (9) Diabetes Is this a current diagnosis for this admission?: Yes - Additional Information Resuscitation Status: Full Code Discharge Diet: Cardiac Discharge Activity: Activity As Tolerated, Balance Activity w/Rest Referrals: DOROTHY CASANOVA MD [Primary Care Provider] - 04/19/19 9:00 am Prescriptions: Levofloxacin [Levaquin 500 mg Tablet] 500 mg PO DAILY 5 Days #5 tablet Home Medications: Amlodipine Besylate [Norvasc 2.5 mg Tablet] 2.5 mg PO DAILY 05/25/17 Atorvastatin Calcium [Lipitor 80 mg Tablet] 80 mg PO QHS 05/25/17 Clopidogrel Bisulfate [Plavix 75 mg Tablet] 75 mg PO DAILY 05/25/17 Furosemide [Lasix 40 mg Tablet] 80 mg PO DAILY 05/25/17 Isosorbide Mononitrate [Isosorbide Mononitrate ER] 30 mg PO DAILY 05/25/17 Lisinopril [Prinivil 5 mg Tablet] 2.5 mg PO DAILY 05/25/17 Meloxicam [Mobic] 7.5 mg PO DAILYP PRN 05/25/17 Metoprolol Tartrate [Lopressor 50 mg Tablet] 25 mg PO Q12 05/25/17 Aspirin [Ecotrin 81 mg EC Tablet] 81 mg PO DAILY 09/18/18 Sitagliptin Phos/Metformin HCl [Janumet 50-500 mg Tablet] 1 each PO BID 09/18/18 Amox Tr/Potassium Clavulanate [Augmentin 875-125 mg Tablet] 1 tab PO BID 04/11/19 Docusate Sodium [Stool Softener] 250 mg PO DAILY 04/11/19 Duloxetine HCl [Cymbalta] 60 mg PO DAILY 04/11/19 Levofloxacin [Levaquin 500 mg Tablet] 500 mg PO DAILY 5 Days #5 tablet 04/11/19 Naproxen Sodium [Aleve] 220 mg PO BID 04/11/19 Nitroglycerin [Gonitro] 400 mcg SL ASDIR PRN 04/11/19 Omeprazole 20 mg PO DAILY 04/11/19 Pregabalin [Lyrica 100 Mg Capsule] 100 mg PO DAILY 04/11/19 History of Present Illiness History of Present Illness: RAMON KIRBY is a 63 year old male CAD post PCI for stents, CHF, hyperlipidemia, CABG, hypertension, diabetes, presenting to ED complaining of left-sided, sharp "jolt like" pain, lasting 3 to 4 seconds, nonradiating, not relieved with nitroglycerin, no alleviating factor identified, worse with cough, associated with diaphoresis and productive cough. Patient has been coughing for the last 2 weeks, was given Augmentin by PCP with no relief of his cough. Due to extensive past medical history of CAD patient concerned that he may have had another heart attack. Patient had a negative stress test on November 2018. Denies any fever, chills, nausea, vomiting, diarrhea, constipation or any urinary symptoms. In ED EKG showed no significant changes, initial troponin 0 0.015, CBC WBC of 17,000. Hospitalist was consulted for admission. Hospital Course Hospital Course: (1) Chest pain Resolved. Given patient's symptoms this is all very likely to be cardiac origin. Pain is sharp, lasts about 3 to 4 seconds, not relieved with nitroglycerin. Chest pain likely due to underlying pneumonia, patient has been coughing for the last 2 weeks has been on Augmentin with no relief. Patient had a outpatient stress test in November 2018 which was negative as per patient. His software engineer web services Dr. Glover, has an appointment with him next week. Troponins 0.015, 0.013, 0.012. EKG unchanged from previous admission. Admit to telemetry,trend troponin, antiplatelets, beta-blockers, MANDIE, statins. A nuclear stress stress was ordered and patient was kept n.p.o. however he did not want to have a stress test on this admission as he had one on November 2018 and was negative. Patient was encouraged to follow-up with software engineer web [employer] and having possible stress test if indicated by software engineer web services. (2) Pneumonia Likely community-acquired pneumonia. Received his Pneumovax and flu vaccine as outpatient. Patient has been coughing for the last 2 weeks, on Augmentin by PCP no relief of his symptoms. Received 2 doses of IV ceftriaxone. Cultures no growth so far. Discharged on ciprofloxacin 500 twice daily for another 5 days. An appointment was made with his PCP (3) HTN (hypertension) Euvolemic at the time of admission. Noted on home meds. (4) CAD (coronary artery disease) As per 1. Restarted on cardiac meds. (5) Hyperlipidemia Restarted on home meds. Diet and lifestyle modification recommended. (6) SALLY (obstructive sleep apnea) Was placed on nocturnal CPAP. Has CPAP at home. Outpatient PCP follow-up. (7) CHF (congestive heart failure) Unsure if systolic or diastolic. No echo available at [facility]. Did not seem to be acutely exacerbated. Euvolemic on physical examination. Restarted on home meds and started on cardiac diet. (8) Obesity (BMI 30-39.9) BMI 37.3. Diet and lifestyle modification recommended. (9) Diabetes Hemoglobin A1c 8.6. Takes sitagliptin at home. Start on diabetic diet, sliding scale insulin. Restart home meds upon discharge. Outpatient PCP follow-up. Physical Exam Vital Signs: Temp Pulse Resp BP Pulse Ox 98.3 F 67 16 130/75 H 94 04/11/19 11:02 04/11/19 11:02 04/11/19 11:02 04/11/19 07:02 04/11/19 11:02 Intake & Output 04/10/19 04/11/19 04/12/19 06:59 06:59 06:59 Intake Total 1050 50 Output Total 0 Balance 1050 50 Weight 131.9 kg General appearance: PRESENT: no acute distress, obese Head exam: PRESENT: atraumatic, normocephalic Respiratory exam: PRESENT: clear to auscultation elham. ABSENT: rales, rhonchi, wheezes Cardiovascular exam: PRESENT: RRR. ABSENT: diastolic murmur, rubs, systolic murmur Pulses: PRESENT: normal dorsalis pedis pul GI/Abdominal exam: PRESENT: normal bowel sounds, soft. ABSENT: distended, guarding, mass, organolmegaly, rebound, tenderness Extremities exam: PRESENT: full ROM. ABSENT: calf tenderness, clubbing, pedal edema Neurological exam: PRESENT: alert, awake, oriented to person, oriented to place, oriented to time, oriented to situation, CN II-XII grossly intact. ABSENT: motor sensory deficit Results Laboratory Results: WBC 10.0 10^3/uL (4.0-10.5) 04/11/19 04:57 RBC 4.80 10^6/uL (4.35-5.55) 04/11/19 04:57 Hgb 14.6 g/dL (13.5-17.0) 04/11/19 04:57 Hct 42.9 % (37.9-51.0) 04/11/19 04:57 MCV 89 fl (80-97) 04/11/19 04:57 MCH 30.4 pg (27.0-33.4) 04/11/19 04:57 MCHC 34.0 g/dL (32.0-36.0) 04/11/19 04:57 RDW 13.2 % (11.5-14.0) 04/11/19 04:57 Plt Count 157 10^3/uL (150-450) 04/11/19 04:57 Lymph % (Auto) 17.9 % (13-45) 04/11/19 04:57 [place] % (Auto) 9.6 % (3-13) 04/11/19 04:57 Eos % (Auto) 0.8 % (0-6) 04/11/19 04:57 Baso % (Auto) 0.3 % (0-2) 04/11/19 04:57 Absolute Neuts (auto) 7.1 10^3/uL (1.7-8.2) 04/11/19 04:57 Absolute Lymphs (auto) 1.8 10^3/uL (0.5-4.7) 04/11/19 04:57 Absolute Monos (auto) 1.0 10^3/uL (0.1-1.4) 04/11/19 04:57 Absolute Eos (auto) 0.1 10^3/uL (0.0-0.6) 04/11/19 04:57 Absolute Basos (auto) 0.0 10^3/uL (0.0-0.2) 04/11/19 04:57 Seg Neutrophils % 71.4 % (42-78) 04/11/19 04:57 PT 14.3 SEC (11.4-15.4) 04/11/19 04:57 INR 1.11 04/11/19 04:57 Sodium 137.9 mmol/L (137-145) 04/11/19 04:57 Potassium 4.4 mmol/L (3.6-5.0) 04/11/19 04:57 Chloride 101 mmol/L (98-107) 04/11/19 04:57 Carbon Dioxide 31 mmol/L (22-30) H 04/11/19 04:57 Anion Gap 6 (5-19) 04/11/19 04:57 BUN 15 mg/dL (7-20) 04/11/19 04:57 Creatinine 0.89 mg/dL (0.52-1.25) 04/11/19 04:57 Est GFR ( Amer) > 60 (>60) 04/11/19 04:57 Est GFR (MDRD) Non-Af > 60 (>60) 04/11/19 04:57 Glucose 149 mg/dL (75-110) H 04/11/19 04:57 POC Glucose 151 mg/dL (70-110) H 04/11/19 07:39 Hemoglobin A1c % 8.6 % (4.7-6.0) H 04/11/19 04:57 Calcium 9.6 mg/dL (8.4-10.2) 04/11/19 04:57 Total Bilirubin 0.9 mg/dL (0.2-1.3) 04/10/19 17:30 Direct Bilirubin 0.2 mg/dL (0.0-0.4) 04/10/19 17:30 Neonat Total Bilirubin Not Reportable 04/10/19 17:30 Neonat Direct Bilirubin Not Reportable 04/10/19 17:30 Neonat Indirect Bili Not Reportable 04/10/19 17:30 AST 27 U/L (17-59) 04/10/19 17:30 ALT 38 U/L (<50) 04/10/19 17:30 Alkaline Phosphatase 113 U/L (38-126) 04/10/19 17:30 Creatine Kinase 35 U/L (55-170) L 04/10/19 17:30 CK-MB (CK-2) 0.42 ng/mL (<4.55) 04/10/19 17:30 Troponin I < 0.012 ng/mL 04/11/19 07:46 Total Protein 6.2 g/dL (6.3-8.2) L 04/10/19 17:30 Albumin 3.7 g/dL (3.5-5.0) 04/10/19 17:30 04/10/19 04/10/19 04/11/19 17:30 23:50 07:46 CK-MB (CK-2) 0.42 Troponin I 0.015 < 0.012 < 0.012 Impressions: Chest X-Ray 04/10/19 17:10 IMPRESSION: NO ACUTE RADIOGRAPHIC FINDING IN THE CHEST. Chest X-Ray 04/11/19 00:00 IMPRESSION: Cardiomegaly and CABG. No acute infiltrates. No pleural effusions. Stroke Is this a Stroke Patient?: No Acute Heart Failure - Is this a Heart Failure Patient?: No
[2019-04-11] MEDS ORDERED: CEFTRIAXONE 1 GM/D5W RTU 1 GM/50 ML RTUPB IV SCH (22:00)
== END 2019-04-11 11:30 | disposition home or self-care (01) ==
LOC: ER 17:08 → EH 18:39 → 3N 23:12
PROVIDERS: ADMIT Internal Medicine; ATTEND Internal Medicine
DX: R07.9 Chest pain, unspecified (principal); J18.9 Pneumonia, unspecified organism; I11.0 Hypertensive heart disease with heart failure; I50.9 Heart failure, unspecified; I25.10 Atherosclerotic heart disease of native coronary artery without angina pectoris; E78.5 Hyperlipidemia, unspecified; G47.33 Obstructive sleep apnea (adult) (pediatric); E66.9 Obesity, unspecified; E11.9 Type 2 diabetes mellitus without complications; R61 Generalized hyperhidrosis; R06.02 Shortness of breath; R11.0 Nausea; I25.2 Old myocardial infarction; G44.40 Drug-induced headache, not elsewhere classified, not intractable; T46.3X5A Adverse effect of coronary vasodilators, initial encounter; E87.1 Hypo-osmolality and hyponatremia; Z68.37 Body mass index [BMI] 37.0-37.9, adult; Z79.899 Other long term (current) drug therapy; Z79.82 Long term (current) use of aspirin; Z79.02 Long term (current) use of antithrombotics/antiplatelets; Z95.5 Presence of coronary angioplasty implant and graft; Z95.1 Presence of aortocoronary bypass graft; Z90.49 Acquired absence of other specified parts of digestive tract
CPT/HCPCS: 93005; 99285; 96375; 96365; 36415 ×2; 82553; 82962 ×2; 82550; 85025 ×2; 85610; 80048; 80053; 84484 ×2; 83036; 71046; 71045; 93010; 94660; 94640; G0378 ×3; J1644 ×2; J1815; J2270; J2405; J7030; J0696 ×2; J7620

== ENCOUNTER 2019-10-05 01:57 | Emergency (ER) | payer MEDICARE, BC ==
[2019-10-05] MEDS ORDERED: NORMAL SALINE 500 ML IV ONE (02:09)
--- NOTE | 2019-10-05 02:12 | ER Document Report ---
ED General - General Chief Complaint: Passed Out Prior to Arrival Stated Complaint: SYNCOPAL EPISODE Time Seen by Provider: 10/05/19 02:01 Primary Care Provider: DOROTHY CASANOVA MD [Primary Care Provider] - Follow up tomorrow Notes: Patient is a 64-year-old male that comes to the emergency department for chief complaint of an episode of "blacking out". Patient states that he was drinking "a lot of alcohol tonight". He states that he did not pass out from the alcohol, he states "I just blacked out". He states he was sitting in his chair and woke up on the floor with his daughter attempting to perform CPR on him. EM S states that family stated he was not breathing and they could not find a pulse, however on arrival patient was alert, oriented, cooperative. Patient denies any pain including headache, chest pain, abdominal pain. He denies vision changes, focal numbness or weakness. Denies incontinence. No seizure activity reported. Patient does report that he has had mild pressure over the chest for the past 3 days but denies any at this time or any tonight. Patient has a history of CAD, [place] with stents in 2012, CABG in 2010, CHF, and is on Lasix and Plavix. TRAVEL OUTSIDE OF THE [place] IN LAST 30 DAYS: No - Related Data Allergies/Adverse Reactions: chlorzoxazone [From Parafon Forte] Allergy (Intermediate, Verified 09/18/18 09:58) rash/itch iodine [Iodine] Allergy (Intermediate, Verified 09/18/18 09:58) rash/itch Shellfish * [Shellfish] Allergy (Intermediate, Verified 09/18/18 09:58) rash/itch peanut Allergy (Verified 09/18/18 09:58) Past Medical History - General Information source: Patient - Social History Smoking Status: Former Smoker Frequency of alcohol use: None Drug Abuse: None Lives with: Family Family History: Reviewed & Not Pertinent Patient has suicidal ideation: No Patient has homicidal ideation: No - Past Medical History Cardiac Medical History: Reports: Hx Congestive Heart Failure, Hx Coronary Artery Disease, Hx Heart Attack - Mar 2011 (CABG) & Feb 2013 (cath w/stent), Hx Hypercholesterolemia, Hx Hypertension Denies: Hx Atrial Fibrillation, Hx Peripheral Vascular Disease, Hx Pulmonary Embolism, Hx Heart Murmur Pulmonary Medical History: Reports: Hx Pneumonia - , Hx Sleep Apnea - CPAP Denies: Hx Asthma, Hx Bronchitis, Hx COPD, Hx Respiratory Failure, Hx Tuberculosis Neurological Medical History: Denies: Hx Cerebrovascular Accident, Hx Seizures, Hx Parkinson's Disease Endocrine Medical History: Reports: Hx Diabetes Mellitus Type 2. Denies: Hx Graves' Disease, Hx Hyperthyroidism, Hx Hypothyroidism Renal/ Medical History: Denies: Hx Benign Prostatic Hyperplasia, Hx End Stage Renal Disease, Hx Kidney Stones, Hx Peritoneal Dialysis Malignancy Medical History: Denies Hx Leukemia, Denies Hx Lung Cancer GI Medical History: Reports: Hx Gastroesophageal Reflux Disease, Hx Ulcer - 1989. Denies: Hx Crohn's Disease, Hx Hiatal Hernia, Hx Irritable Bowel, Hx Liver Failure, Hx Pancreatitis Musculoskeletal Medical History: Reports Hx Arthritis, Denies Hx Fibromyalgia, Denies Hx Multiple Sclerosis, Denies Hx Muscular Dystrophy, Denies Hx Systemic Lupus Erythematosus Psychiatric Medical History: Denies: Hx Dementia, Hx Depression Traumatic Medical History: Denies: Hx Fractures Infectious Medical History: Denies: Hx HIV Past Surgical History: Reports: Hx Appendectomy - at age [age] years old, Hx Cardiac Surgery - stents, Hx Coronary Artery Bypass Graft - 2010, 3 vessel, [place], Hx Tonsillectomy. Denies: Hx Bowel Surgery, Hx Cholecystectomy, Hx Colostomy, Hx Gastric Bypass Surgery, Hx Herniorrhaphy, Hx Pacemaker - Immunizations Hx Pneumococcal Vaccination: 05/13/16 Review of Systems - Review of Systems Constitutional: No symptoms reported EENT: No symptoms reported Cardiovascular: See HPI Respiratory: No symptoms reported Gastrointestinal: No symptoms reported Genitourinary: No symptoms reported Male Genitourinary: No symptoms reported Musculoskeletal: No symptoms reported Skin: No symptoms reported Hematologic/Lymphatic: No symptoms reported Neurological/Psychological: See HPI Physical Exam - Vital signs Vitals: Resp Pulse Ox 21 H 95 10/05/19 02:00 10/05/19 02:00 - Notes Notes: GENERAL: Alert, interacts well. Patient appears mildly intoxicated and occasionally slurs his speech HEAD: Normocephalic, atraumatic. EYES: Pupils equal, round, and reactive to light. Extraocular movements intact. ENT: Oral mucosa very dry, tongue midline. Oropharynx unremarkable. Airway patent. LUNGS: Clear to auscultation bilaterally, no wheezes, rales, or rhonchi. No respiratory distress. Nontender chest with no signs of bruising or trauma. HEART: Regular rate and rhythm. No murmur ABDOMEN: Soft, non-tender. Non-distended. Bowel sounds present in all 4 quadrants. No signs of trauma. EXTREMITIES: Moves all 4 extremities spontaneously. No noted tenderness. No edema, normal radial and dorsalis pedis pulses bilaterally. No cyanosis. BACK: no cervical, thoracic, lumbar midline tenderness. No saddle anesthesia, normal distal neurovascular exam. Moves all extremities in full range of motion. NEUROLOGICAL: Alert and oriented x3. Occasional mild slurring of speech. Cranial nerves II through XII grossly intact. PSYCH: Friendly and cooperative, talkative SKIN: Warm, dry, normal turgor. No rashes or lesions noted. Course - Re-evaluation Re-evalutation: Patient is asymptomatic. He did report that CPR had been performed, however he has no signs of injury, no ecchymosis, no current pain. Patient was well- appearing other than being mildly intoxicated on initial evaluation, he is significantly improved on reevaluation after IV fluids. Vital signs unremarkable. EKG unremarkable, chest x-ray unremarkable, CT of the head and neck performed because of patient's fall, uncertain injury, EtOH, and Plavix but this was unremarkable as well. CBC nonspecific, chemistry unremarkable. Troponin is indeterminate. Troponin was cycled without significant change, still not positive. Alcohol level 204. On evaluation patient still has no symptoms. Senia fuentes is requesting to be discharged. I discussed patient presentation, work-up, history with Dr. Pérez. Recommendation is for patient be discharged with follow-up with his provider tomorrow and return precautions. I discussed these in detail. Patient states satisfaction and agreement. Stable and asymptomatic at time of discharge. - Vital Signs Vital signs: Temp Pulse Resp BP Pulse Ox 97.7 F 23 H 129/83 H 99 10/05/19 06:26 10/05/19 06:26 10/05/19 06:26 10/05/19 06:26 - Laboratory Result Diagrams: 10/05/19 02:11 10/05/19 02:11 Laboratory results interpreted by me: 10/05/19 10/05/19 02:11 02:11 Plt Count 139 L Sodium 136.1 L Glucose 178 H ALT 61 H Alkaline Phosphatase 132 H - EKG Interpretation by Me Additional EKG results interpreted by me: EKG shows sinus rhythm at a rate of 76, flattened T waves inferiorly with borderline Q waves but no Q waves in consecutive leads were ischemic T waves. No ST segment changes in consecutive leads. QTC 441. Left axis deviation. Discharge - Discharge Clinical Impression: Episode of syncope Qualifiers: Syncope type: unspecified Qualified Code(s): R55 - Syncope and collapse Alcohol intoxication Qualifiers: Complication of substance-induced condition: with unspecified complication Qualified Code(s): F10.929 - Alcohol use, unspecified with intoxication, unspecified Condition: Stable Disposition: HOME, SELF-CARE Additional Instructions: Your imaging of the brain and remaining work-up did not show any concerning or specific findings. Avoid drinking alcohol to intoxication. Follow-up with your provider tomorrow for additional evaluation and management. Return if you worsen including passing out again, developing chest pain, severe headache, difficulty breathing, or any other concerning symptoms. Referrals: DOROTHY CASANOVA MD [Primary Care Provider] - Follow up tomorrow
[2019-10-05 02:27] LABS: ABSOLUTE BASOPHILS # (AUTO) 0.1 10^3/uL (0.0-0.2); ABSOLUTE EOSINOPHILS # (AUTO) 0.1 10^3/uL (0.0-0.6); ABSOLUTE LYMPHOCYTES (AUTO) 1.9 10^3/uL (0.5-4.7); ABSOLUTE MONOCYTES (AUTO) 0.7 10^3/uL (0.1-1.4); ABSOLUTE NEUT (AUTO) 4.2 10^3/uL (1.7-8.2); BASOPHILS % (AUTO) 1.1 % (0-2); EOSINOPHILS % (AUTO) 1.4 % (0-6); HEMATOCRIT 46.2 % (37.9-51.0); HEMOGLOBIN 16.1 g/dL (13.5-17.0); LYMPHOCYTES % (AUTO) 27.6 % (13-45); MEAN CORPUSCULAR HEMOGLOBIN 31.6 pg (27.0-33.4); MEAN CORPUSCULAR HGB CONC 34.8 g/dL (32.0-36.0); MEAN CORPUSCULAR VOLUME 91 fl (80-97); MONOCYTES % (AUTO) 10.5 % (3-13); PLATELET COUNT 139 10^3/uL (150-450); RED BLOOD COUNT 5.09 10^6/uL (4.35-5.55); RED CELL DISTRIBUTION WIDTH 13.5 % (11.5-14.0); SEGMENTED NEUTROPHILS % (AUTO) 59.4 % (42-78); TOTAL CELLS COUNTED % (AUTO) 100 %
[2019-10-05 02:42] LABS: ALBUMIN 3.9 g/dL (3.5-5.0); ALCOHOL 206 mg/dL (NONE DETECTED); ALKALINE PHOSPHATASE 132 U/L (38-126); ANION GAP 9 (5-19); ASPARTATE AMINO TRANSFERASE 51 U/L (17-59); BILIRUBIN,DIRECT 0.4 mg/dL (0.0-0.4); BILIRUBIN,TOTAL 0.4 mg/dL (0.2-1.3); BLOOD UREA NITROGEN 15 mg/dL (7-20); CALCIUM 10.2 mg/dL (8.4-10.2); CARBON DIOXIDE 28 mmol/L (22-30); CHLORIDE 99 mmol/L (98-107); GLUCOSE 178 mg/dL (75-110); POTASSIUM 4.1 mmol/L (3.6-5.0)
--- NOTE | 2019-10-05 02:57 | RADIOLOGY REPORT (SQ) ---
INDICATION: passed out, head injury, ETOH, plavix. Loss of consciousness. COMPARISON: None CORRELATION: None TECHNIQUE: Noncontrast spiral axial CT images were obtained from the skull base to vertex. Noncontrast spiral axial CT imaging through the cervical spine with multiplanar reconstructions. This exam was performed according to our departmental dose-optimization program, which includes automated exposure control, adjustment of the mA and/or kV according to patient size and/or use of iterative reconstruction techniques. FINDINGS: BRAIN: There is no evidence of acute intracranial hemorrhage, midline shift, mass effect or mass lesion. Oreilly-white differentiation is normal. There is no evidence of acute large territory infarct. Ventricles and extracerebral spaces are within normal limits, for age. The visualized paranasal sinuses are grossly clear. The orbits and eyeballs are unremarkable. The mastoid air cells are clear. Skull base and calvarium appear intact. CERVICAL SPINE: No acute displaced fracture is identified of the cervical spine. Alignment is anatomic. No focal alignment abnormality is identified. The uncovertebral joints and facets are within normal limits, for age. Surrounding soft tissues of the neck are unremarkable. IMPRESSION: No acute intracranial process is identified. No acute bony injury is seen to the cervical spine.
--- NOTE | 2019-10-05 03:04 | RADIOLOGY REPORT (SQ) ---
CLINICAL INDICATION: post CPR. Cardiac arrest TECHNIQUE: A single portable AP view was obtained of the chest at 0243 hours. COMPARISON: April 11, 2019. FINDINGS: The cardiomediastinal silhouette is enlarged but stable with postsurgical change. The lungs are grossly clear. No evidence of effusion or pneumothorax. The visualized bones are unremarkable. IMPRESSION: No evidence of active intrathoracic disease. If there is suspicion for focal bony injury, dedicated bone radiography of the area in question is advised.
[2019-10-05 08:40] VITALS: BP 145/85
--- NOTE | 2019-10-05 11:27 | EKG REPORT ---
SEVERITY:- ABNORMAL ECG - SINUS RHYTHM NONSPECIFIC INTRAVENTRICULAR CONDUCTION DELAY PROBABLE INFERIOR INFARCT, AGE INDETERMINATE : Confirmed by: Emory Nolasco MD 05-Oct-2019 11:26:37
== END 2019-10-05 08:42 | disposition home or self-care (01) ==
LOC: ER 01:57
DX: Z04.3 Encounter for examination and observation following other accident (principal); F10.129 Alcohol abuse with intoxication, unspecified; Y90.7 Blood alcohol level of 200-239 mg/100 ml; R55 Syncope and collapse; E11.9 Type 2 diabetes mellitus without complications; I25.10 Atherosclerotic heart disease of native coronary artery without angina pectoris; I25.2 Old myocardial infarction; I11.0 Hypertensive heart disease with heart failure; I50.9 Heart failure, unspecified; Z79.899 Other long term (current) drug therapy; Z79.02 Long term (current) use of antithrombotics/antiplatelets; Z95.1 Presence of aortocoronary bypass graft; Z95.5 Presence of coronary angioplasty implant and graft; Z87.891 Personal history of nicotine dependence; Z88.8 Allergy status to other drugs, medicaments and biological substances; Z91.013 Allergy to seafood; Z91.010 Allergy to peanuts
CPT/HCPCS: 93005; 99285; 36415; 80307; 85025; 80053; 84484; 71045; 70450; 72125; 93010; J7040

== ENCOUNTER → 2020-04-11 | Outpatient (CLI) | payer MEDICARE, BC ==
[2020-04-11 15:52] LABS: ABSOLUTE BASOPHILS # (AUTO) 0.1 10^3/uL (0.0-0.2); ABSOLUTE EOSINOPHILS # (AUTO) 0.1 10^3/uL (0.0-0.6); ABSOLUTE LYMPHOCYTES (AUTO) 1.6 10^3/uL (0.5-4.7); ABSOLUTE MONOCYTES (AUTO) 0.6 10^3/uL (0.1-1.4); ABSOLUTE NEUT (AUTO) 3.8 10^3/uL (1.7-8.2); BASOPHILS % (AUTO) 0.9 % (0-2); EOSINOPHILS % (AUTO) 2.3 % (0-6); HEMATOCRIT 46.2 % (37.9-51.0); HEMOGLOBIN 16.4 g/dL (13.5-17.0); LYMPHOCYTES % (AUTO) 25.5 % (13-45); MEAN CORPUSCULAR HEMOGLOBIN 31.2 pg (27.0-33.4); MEAN CORPUSCULAR HGB CONC 35.5 g/dL (32.0-36.0); MEAN CORPUSCULAR VOLUME 88 fl (80-97); MONOCYTES % (AUTO) 9.4 % (3-13); PLATELET COUNT 163 10^3/uL (150-450); RED BLOOD COUNT 5.25 10^6/uL (4.35-5.55); RED CELL DISTRIBUTION WIDTH 14.7 % (11.5-14.0); SEGMENTED NEUTROPHILS % (AUTO) 61.9 % (42-78); TOTAL CELLS COUNTED % (AUTO) 100 %; WHITE BLOOD COUNT 6.1 10^3/uL (4.0-10.5)
[2020-04-11 16:12] LABS: ALBUMIN 4.1 g/dL (3.5-5.0); ALKALINE PHOSPHATASE 162 U/L (38-126); ANION GAP 11 (5-19); ASPARTATE AMINO TRANSFERASE 29 U/L (17-59); BILIRUBIN,DIRECT 0.4 mg/dL (0.0-0.4); BILIRUBIN,TOTAL 0.8 mg/dL (0.2-1.3); BLOOD UREA NITROGEN 19 mg/dL (7-20); CALCIUM 10.1 mg/dL (8.4-10.2); CARBON DIOXIDE 29 mmol/L (22-30); CHLORIDE 98 mmol/L (98-107); GLUCOSE 357 mg/dL (75-110)
--- NOTE | 2020-04-11 16:12 | RADIOLOGY REPORT (SQ) ---
EXAM DESCRIPTION: ANKLE RIGHT COMPLETE IMAGES COMPLETED DATE/TIME: 04/11/2020 3:57 pm REASON FOR STUDY: L97.312 NON-PRS CHRONIC ULCER OF RIGHT ANKLE W FAT LAYER EXPOSED L97.312 NON-PRS CHRONIC ULCER OF RIGHT ANKLE W FAT LAYER EXP E11.621 TYPE 2 DIABETES MELLITUS WITH FOOT ULCER COMPARISON: None. NUMBER OF VIEWS: Three views. TECHNIQUE: AP, lateral, and oblique radiographic images acquired of the right ankle. LIMITATIONS: None. FINDINGS: MINERALIZATION: Normal. BONES: Old fracture distal fibula status post plate and screw fixation. No acute fracture or disloca tion. No worrisome bone lesions. JOINTS: No effusions. SOFT TISSUES: No soft tissue swelling. No foreign body. OTHER: No other significant finding. IMPRESSION: No evidence of osteomyelitis. TECHNICAL DOCUMENTATION: JOB ID: [id number] 2010 [employer]- All Rights Reserved Reading location - IP/workstation name: [email or web address]
[2020-04-11 16:43] LABS: ERYTHROCYTE SEDIMENTATION RATE 8 mm/hr (0-20)
== END ==
LOC: WC 15:05
PROVIDERS: ATTEND Nurse Practitioner Family
DX: E11.621 Type 2 diabetes mellitus with foot ulcer (principal); L97.312 Non-pressure chronic ulcer of right ankle with fat layer exposed
CPT/HCPCS: 36415; 80053; 83036; 85025; 85652; 86140

== ENCOUNTER → 2020-04-23 | Outpatient (CLI) | payer MEDICARE, BC ==
--- NOTE | 2020-04-24 11:46 | RADIOLOGY REPORT (SQ) ---
EXAM DESCRIPTION: PHYSIO ARTERIAL LTD IMAGES COMPLETED DATE/TIME: 04/23/2020 4:44 pm REASON FOR STUDY: RT ANKLE ULCER L97.312 NON-PRS CHRONIC ULCER OF RIGHT ANKLE W FAT LAYER EXP COMPARISON: None. TECHNIQUE: Dynamic and static tavera scale and color images acquired of the lower extremity arteries. Additional selected spectral images recorded. ABIs recorded. LIMITATIONS: None. FINDINGS: RIGHT LEG: ABIS: Normal, over 1.0. INFLOW ARTERIES: Not imaged. FEMORAL ARTERIES:Multiphasic waveforms. Normal, no velocity elevation to suggest focal stenosis. Norm al color Doppler evaluation. No aneurysm. POPLITEAL ARTERY:Multiphasic waveforms. Normal, no velocity elevation to suggest focal stenosis. Norm al color Doppler evaluation. No aneurysm. PATENT TIBIOPERONEAL TRUNK AND 3 VESSEL RUNOFF: Yes, normal vessels. TBI: Not performed. OTHER: No other significant finding. LEFT LEG: ABIS: Normal, over 1.0. INFLOW ARTERIES: Not imaged. FEMORAL ARTERIES:Multiphasic waveforms. Normal, no velocity elevation to suggest focal stenosis. Norm al color Doppler evaluation. No aneurysm. POPLITEAL ARTERY:Multiphasic waveforms. Normal, no velocity elevation to suggest focal stenosis. Norm al color Doppler evaluation. No aneurysm. PATENT TIBIOPERONEAL TRUNK AND 3 VESSEL RUNOFF: Yes, normal vessels. TBI: Not performed. OTHER: No other significant finding. IMPRESSION: NORMAL BILATERAL LOWER EXTREMITY ARTERIAL DOPPLER WITH ABIs. COMMENT: [place]CHELL NORMAL: Greater than 1.0 MINIMAL DISEASE: 0.9 to 1.0 CLAUDICATION: 0.5 to 0.9 SEVERE ARTERIAL DISEASE: Less than 0.5 [facility] NORMAL: Greater than 1.0 (1.2 If Heavy Calcifications) NORMAL TO MILD ISCHEMIA: 0.8 to 1.0 MODERATE ISCHEMIA: 0.4 to 0.8 SEVERE ISCHEMIA: Less than 0.4 TECHNICAL DOCUMENTATION: JOB ID: [id number] 2010 [employer]- All Rights Reserved Reading location - IP/workstation name: [email or web address]
== END ==
LOC: SP 14:08
PROVIDERS: ATTEND Nurse Practitioner Family
DX: L97.312 Non-pressure chronic ulcer of right ankle with fat layer exposed (principal)
CPT/HCPCS: 93922; 93925